=== PATIENT | female | born 1990 | race Caucasian/White ===

== ENCOUNTER 2019-09-13 19:31 | Emergency (ER) | payer BC, SELFPAY ==
[2019-09-13 19:42] VITALS: BP 134/82; PULSE 93; RESP 16; TEMP 36.3; O2SAT 96; BMI 39.1
--- NOTE | 2019-09-13 21:08 | W.ED.GENADLT ---
HPI - General Adult General: Chief complaint: General Medical Stated complaint: spider bite Time Seen by Provider: 09/13/19 21:04 History of Present Illness: HPI narrative: Patient has redness and swelling underneath the chin on the left side on her neck. Was seen in urgent care earlier today and 18-gauge needle was introduced into the possible spider bite. Was placed on Bactrim. Patient states it hurts pretty bad complaint: Abscess Onset (ago): day(s) Location: neck Radiation: non-radiation Severity scale (1-10): 8 Quality: aching Pain Consistency: constant Associated symptoms: Reports rash; Deny chest pain, dyspnea, headache(s), nausea or vomiting Review of Systems Const: Denies: fever, chills or body aches Eyes: Denies: change in vision or blurry vision ENMT: Denies: throat pain or nasal congestion Card: Denies: chest pain or shortness of breath on exertion Resp: Denies: shortness of breath, productive cough or non-productive cough GI: Denies: abdominal pain, nausea or vomiting Musc: Denies: extremity pain Skin/Breast: Reports: rash, skin tenderness, skin swelling and sores Neuro: Denies: headache Psych: Denies: anxiety or depression Miah/Lymph: Denies: easy bruising PFSH ED PFSH: Statuses (acute, chronic, etc) shown below reflect problem list status as previously entered and may not be historically accurate Social History (Updated 09/13/19 @ 10:13 by Ngoc Back LPN) Smoking and tobacco status: current every day smoker Alcohol intake: never Female Reproductive History: Date of last menstrual period: 08/23/19 Physical Exam Const: COMMON NORMALS: no apparent distress, average body habitus and oriented x3 HENMT: COMMON NORMALS: normocephalic HEAD & SCALP: normal to inspection and normocephalic FACE & SINUS: normal facial exam Eye: COMMON NORMALS: conjunctivae normal GENERAL EYE: normal appearance of both eyes CONJUNCTIVA: Yes conjunctivae normal Neck/C-Spine: COMMON NORMALS: no JVD Chest: COMMONS NORMALS: inspection of chest normal Resp: COMMON NORMALS: normal respiratory effort and clear to auscultation bilaterally AUSCULTATION: clear to auscultation bilaterally Cardio: COMMON NORMALS: no JVD, regular rate and regular rhythm RATE: regular rate RHYTHM: regular rhythm GI: COMMON NORMALS: normal to inspection, nondistended, normoactive bowel sounds Extremity: COMMON NORMALS: normal to inspection and full ROM Neuro: COMMON NORMALS: oriented x3 Skin: NARRATIVE SKIN EXAM: Has what appears to be an abscess underneath the left aspect of the chin from a possible bite. Does have a marked amount of erythema and tenderness directly below the chin and tender does appear to be a loculated area Procedures Abscess I/D Site: neck Local Anesthetic: lidocaine 1% Amount of anesthesia used (mL): 3 Technique: incised with #11 blade Packing used?: plain Course Vital Signs: Vital signs: Vital Signs Temperature 97.4 F L 09/13/19 19:42 Pulse Rate 93 09/13/19 19:42 Respiratory Rate 16 09/13/19 19:42 Blood Pressure 134/82 09/13/19 19:42 Pulse Oximetry 96 09/13/19 19:42 Discharge Plan Discharge Prescriptions: No Action lithium carbonate 300 mg capsule 300 mg PO BID RF: 0 venlafaxine [Effexor XR] 75 mg capsule,extended release 24hr 75 mg PO QAM RF: 0 Ajovy 225 mg/1.5 mL syringe 225 mg SUBCUT ONCE Qty: 1.5 RF: 3 Bactrim DS 800-160 mg Tablet 1 tab PO BID RF: 0 Coding Level of Care Code ED Workers' Compensation Claims Examiner for Chg Fwd Exam Problem Focused
[2019-09-13] MEDS: HYDROcodone-acetaminophen 5-325 mg Tablet 1 TAB PO (21:12)
[2019-09-13] MEDS: lidocaine 1% INJ 20 mL INTRADERMA (21:13)
[2019-09-13 22:17] VITALS: BP 138/72; PULSE 89; RESP 16; O2SAT 100
== END 2019-09-13 22:18 | disposition home or self-care (01) ==
PROVIDERS: Emergency Provider Nurse Practitioner Family; Family Provider Nurse Practitioner; PCP Family Medicine
DX: L02.11 Cutaneous abscess of neck (principal); F17.210 Nicotine dependence, cigarettes, uncomplicated
CPT/HCPCS: 10060; 87070; 87077; 87186; 99281; J2001

== ENCOUNTER → 2019-10-01 09:30 | Outpatient (BNVA) | payer BC, SELFPAY | PROVIDERS: Family Provider Nurse Practitioner; PCP Family Medicine; Visit Provider Family Medicine | DX: R68.89 Other general symptoms and signs (principal); Z20.828 Contact with and (suspected) exposure to other viral communicable diseases; F17.219 Nicotine dependence, cigarettes, with unspecified nicotine-induced disorders | CPT/HCPCS: 87804 ==

== ENCOUNTER 2019-10-15 07:33 | Emergency (ER) | payer BC, SELFPAY ==
--- NOTE | 2019-10-15 07:35 | ED_ITS ---
HPI - Abdominal Pain General: Chief Complaint: Abdominal Pain Stated Complaint: ABD PAIN, BLOOD IN STOOL, AND FEVER Time Seen by Provider: 10/15/19 07:35 Source: patient Mode of arrival: ambulatory Limitations: no limitations History of Present Illness: HPI narrative: Patient is a 28-year-old female who presents to ED today with complaints of blood in her stool that she initially noticed yesterday. She states she has had approximately 3-5 stools total that she has noticed blood. She states mainly she notices bright red blood with wiping however did have one stool that had a couple of tablespoons of bright red blood in it that made her concerned. She reports consistency of her stools being loose however this is not uncommon for patient as she often suffers from intermittent diarrhea. She states she has self diagnosed herself with probable IBS. She is having some mild lower abdominal pain. Reports a little nausea without vomiting. Denies history of GI bleeds, hemorrhoids, diverticulitis, colitis. MD elicited complaint: abdominal pain and other (blood in stools) Pertinent past history: none Location: LLQ Severity: mild Quality: cramping Radiation: none Migration to: no migration Exacerbating factors: nothing Relieving factors: bowel movement Associated Symptoms: Reports hematochezia and nausea; Denies bloating, chills, coffee ground emesis, constipation, dysuria, excessive flatus, fever(s), heartburn, hematemesis, fecal incontinence, melena, syncope and vomiting Related Data: Date of Last Menstrual Period: 08/23/19 Review of Systems Const: Denies: fever, chills, body aches, change in appetite, change in weight, fatigue or malaise Card: Denies: chest pain, palpitations, irregular heart rhythm, edema, lightheadedness, syncope or pre-syncope Resp: Denies: shortness of breath, productive cough or chest congestion GI: Reports: abdominal pain, nausea and blood in stool; Denies: vomiting, vomiting blood, coffee grounds in vomit, heartburn/indigestion, constipation, bloating, excessive passing of gas, fecal incontinence, rectal swelling, rectal itching, black tarry stool, mucus in stool, white/light colored stool or fatty stool : Denies: flank pain, difficulty urinating, painful urination, urinary frequency, urinary urgency or urinary hesitancy Musc: Denies: neck pain or back pain Skin/Breast: Denies: rash Neuro: Denies: headache, numbness in extremities, weakness in extremities or changes in sensation PFSH ED PFSH: Social History Smoking and tobacco status: current every day smoker cigarettes Packs smoked per day: 1 Alcohol intake: never Female Reproductive History: Date of last menstrual period: 08/23/19 Physical Exam Const: COMMON NORMALS: no apparent distress, oriented x3, no limitations and alert NUTRITIONAL APPEARANCE: obese Resp: COMMON NORMALS: normal respiratory effort and clear to auscultation bilaterally AUSCULTATION: clear to auscultation bilaterally Cardio: COMMON NORMALS: regular rate and regular rhythm RATE: regular rate RHYTHM: regular rhythm GI: COMMON NORMALS: normal to inspection, nondistended, normoactive bowel sounds, soft to palpation, no hepatosplenomegaly and no masses PALPATION: Yes soft, Yes tender Details: LLQ and Yes no hepatosplenomegaly RECTAL EXAM: other (external skin tag; hemoccult negative; probable small internal hemorrhoid) : COMMON NORMALS: Yes no CVA tenderness BLADDER/KIDNEY EXAM: Yes no CVA tenderness Back/Pelvis: COMMON NORMALS: no CVA tenderness Neuro: COMMON NORMALS: oriented x3 SENSORIUM/ORIENTATION: Yes alert Skin: COMMON NORMALS: no rashes or lesions noted GENERAL SKIN EXAM: no rashes or lesions noted Course Vital Signs: Vital signs: Vital Signs Temperature 99.6 F 10/15/19 07:38 Pulse Rate 86 10/15/19 09:06 Respiratory Rate 15 10/15/19 09:06 Blood Pressure 133/72 10/15/19 09:06 Pulse Oximetry 100 10/15/19 09:06 MDM - Abdominal Pain MDM Narrative: Medical decision making narrative: Patient's H&H is normal. Her vitals are stable. Orthostatics are negative. Patient did have pictures of her bloody stools on her phone and it appears to have a few tablespoons of bright red blood. Her hemoccult is negative here although patient did just have a bowel movement so there was not much stool in her rectum. Patient is stable for follow-up on an outpatient basis. If blood continues she may see about getting a referral for a possible colonoscopy. Most likely patient has an internal hemorrhoid that is bleeding. Lab Data: Labs: Lab Results 10/15/19 10/15/19 10/15/19 Range/Units 07:42 07:42 07:42 WBC 8.9 (4.0-10.0) 10^3/ uL RBC 4.71 (4.1-5.3) 10^6/u L Hgb 12.8 (11.5-15.3) g/dL Hct 40.1 (37.0-47.0) % MCV 85.1 (81-99) fL MCH 27.2 L (28.0-34.0) pg MCHC 31.9 (30.0-36.0) g/dL RDW 14.2 (12.1-15.1) % Plt Count 248 (130-400) 10^3/c mm MPV 9.8 (7.4-10.4) fL Neut % (Auto) 64.0 % Lymph % (Auto) 26.7 % [place] % (Auto) 7.5 % Eos % (Auto) 1.1 % Baso % (Auto) 0.5 % Neut # (Auto) 5.7 (1.8-7.7) 10^3/u L Lymph # (Auto) 2.4 (0.8-4.8) 10^3/u L [place] # (Auto) 0.7 (0.2-0.9) 10^3/u L Eos # (Auto) 0.1 (0.0-0.8) 10^3/u L Baso # (Auto) 0.0 (0.0-0.1) 10^3/u L Nucleated RBC % (a uto) 0 % Nucleated RBCs # 0.0 /100WBC Sodium 140 (136-145) mmol/L Potassium 3.8 (3.5-5.1) mmol/L Chloride 105 (98-107) mmol/L Carbon Dioxide 21 L (22-29) mmol/L Anion Gap 17.8 (5-19) BUN 13 (6-20) mg/dL Creatinine 0.9 (0.5-0.9) mg/dL GFR Calculation 74.6 L (90-130) mL/min Glucose 152 H (65-115) mg/dL Calcium 10.2 (8.5-10.5) mg/dL Total Bilirubin 0.4 (0.15-1.2) mg/dL AST 36 H (0-32) U/L ALT 39 H (0-33) U/L Alkaline Phosphata se 70 (35-105) IU/L Total Protein 7.8 (6.6-8.7) g/dL Albumin 4.3 (3.5-5.2) g/dL Globulin 3.5 (1.3-4.6) g/dL Lipase 18 (13-60) U/L HCG, Qual Negative (Negative) Urine Color (Yellow) Urine Appearance (CLEAR) Urine pH (5-7) Ur Specific Gravit y (1.005-1.030) Urine Protein (Negative) Urine Glucose (UA) (Normal) Urine Ketones (Negative) Urine Blood (Negative) Urine Nitrate (Negative) Urine Bilirubin (NEGATIVE) Urine Urobilinogen (Negative) mg/dL Ur Leukocyte Sandra ase (Negative) Influenza Type A A g (Negative) POC Influenza B Ag (Negative) 10/15/19 10/15/19 Range/Units 08:16 08:57 WBC (4.0-10.0) 10^3/ uL RBC (4.1-5.3) 10^6/u L Hgb (11.5-15.3) g/dL Hct (37.0-47.0) % MCV (81-99) fL MCH (28.0-34.0) pg MCHC (30.0-36.0) g/dL RDW (12.1-15.1) % Plt Count (130-400) 10^3/c mm MPV (7.4-10.4) fL Neut % (Auto) % Lymph % (Auto) % [place] % (Auto) % Eos % (Auto) % Baso % (Auto) % Neut # (Auto) (1.8-7.7) 10^3/u L Lymph # (Auto) (0.8-4.8) 10^3/u L [place] # (Auto) (0.2-0.9) 10^3/u L Eos # (Auto) (0.0-0.8) 10^3/u L Baso # (Auto) (0.0-0.1) 10^3/u L Nucleated RBC % (a uto) % Nucleated RBCs # /100WBC Sodium (136-145) mmol/L Potassium (3.5-5.1) mmol/L Chloride (98-107) mmol/L Carbon Dioxide (22-29) mmol/L Anion Gap (5-19) BUN (6-20) mg/dL Creatinine (0.5-0.9) mg/dL GFR Calculation (90-130) mL/min Glucose (65-115) mg/dL Calcium (8.5-10.5) mg/dL Total Bilirubin (0.15-1.2) mg/dL AST (0-32) U/L ALT (0-33) U/L Alkaline Phosphata se (35-105) IU/L Total Protein (6.6-8.7) g/dL Albumin (3.5-5.2) g/dL Globulin (1.3-4.6) g/dL Lipase (13-60) U/L HCG, Qual (Negative) Urine Color Yellow (Yellow) Urine Appearance Clear (CLEAR) Urine pH 7.0 (5-7) Ur Specific Gravit y 1.005 (1.005-1.030) Urine Protein Neg (Negative) Urine Glucose (UA) Norm (Normal) Urine Ketones Negative (Negative) Urine Blood Neg (Negative) Urine Nitrate Negative (Negative) Urine Bilirubin Neg (NEGATIVE) Urine Urobilinogen Norm (Negative) mg/dL Ur Leukocyte Sandra ase Negative (Negative) Influenza Type A A g Negative (Negative) POC Influenza B Ag Negative (Negative) Imaging Data ^: CT Abd/Pel: Radiologist's impression: [place] [address] CT Scan Report Signed Patient: Cuca Mcintosh Unit #: [id number] : 1990 Age/Sex: 28 / F ADM Date: 10/15/19 Loc: ER Room/Bed: Attending Dr: Ordering Provider/Ordering MD: Maria Del Rosario Solis Date of Service: 10/15/19 Procedure(s): CT abdomen pelvis w con* [id number] Accession Number(s): [id number] Report Number: [id number] WS: [id number] CT scan of the abdomen and pelvis with IV contrast. Additional two-dimensional coronal and sagittal reconstruction was performed. 10/15/2019 Clinical Data: LLQ pain; bloody stools Comparison: CT abdomen and pelvis, 01/27/2018. DLP: 1544.[address] scans at [facility] use at least one of these dose optimization techniques: automated exposure control; mA and/or kV adjustment per patient size (includes targeted exams where dose is matched to clinical indication); or iterative reconstruction. Findings: The lower lungs show no nodules, masses or effusions. The liver, gallbladder, spleen, adrenal glands and pancreas are normal. The kidneys show equal bilateral contrast excretion with no cyst or masses. The abdominal aorta is normal in size. No appendicitis or diverticulitis is seen. The stomach, small bowel and colon are unremarkable. No abscess, adenopathy, ascites, mass, obstruction or free air is seen. The bladder is unremarkable. The uterus is normal. No inguinal hernia is seen. The bones of the lower thorax, lumbar spine, pelvis, and hips show only degenerative disc disease at L5-S1.. CT/CT abdomen pelvis w con* [id number] Impression: Negative CT scan of the abdomen and pelvis. Dictated By: Martha Thorne MD Signed By: Martha Thorne MD Signed Date/Time: 10/15/19848 DD/ 2 Discharge Plan Discharge Patient Disposition: Home, Self-Care Clinical Impression: Hematochezia Condition: Stable Prescriptions: No Action oseltamivir [Tamiflu] 75 mg capsule 75 mg PO DAILY Qty: 10 RF: 0 lithium carbonate 300 mg capsule 300 mg PO BID RF: 0 venlafaxine [Effexor XR] 75 mg capsule,extended release 24hr 75 mg PO QAM RF: 0 Ajovy 225 mg/1.5 mL syringe 225 mg SUBCUT ONCE Qty: 1.5 RF: 3 Ajovy 225 mg/1.5 mL syringe 225 mg SUBCUT .Monthly Qty: 1.5 RF: 3 Emgality Syringe 120 mg/mL syringe 240 mg SUBCUT ONCE Qty: 2 RF: 0 Discharge Orders: Discharge Order (Routine); Ordered 10/15/19 Ordered By: Maria Del Rosario Solis Referrals: Madelyn Chino FNP [Family Provider] - Jacqui Peraza DO [Primary Care Provider] - Activity Restrictions/Additional Instructions: As discussed please followup with Dr. Peraza if bleeding continues past 3-5 days. Return to ED if bleeding becomes severe, you have lightheadedness, dizziness, passing out episodes, worsening pain, or any other concerns you may have. Stand Alone Forms: Work/School Release Discharge Date/Time: 10/15/19 09:52 Coding Level of Care Code ED Manager Oracle Database for Holland Rawls
[2019-10-15 07:36] VITALS: BMI 39.1
[2019-10-15 07:38] VITALS: BP 166/90; PULSE 120; RESP 16; TEMP 37.6; O2SAT 98
[2019-10-15 07:46] LABS: Basophils % 0.5 %; Eosinophils # 0.1 10^3/uL (0.0-0.8); Eosinophils % 1.1 %; Hematocrit 40.1 % (37.0-47.0); Hemoglobin 12.8 g/dL (11.5-15.3); Lymphocytes # 2.4 10^3/uL (0.8-4.8); Lymphocytes % 26.7 %; Mean Corpuscular HGB Conc 31.9 g/dL (30.0-36.0); Mean Corpuscular Hemoglobin 27.2 pg (28.0-34.0); Mean Corpuscular Volume 85.1 fL (81-99); Mean Platelet Volume 9.8 fL (7.4-10.4); Monocytes # 0.7 10^3/uL (0.2-0.9); Monocytes % 7.5 %; Neutrophils # 5.7 10^3/uL (1.8-7.7); Nucleated Red Blood Cells % 0 %; Platelet Count 248 10^3/cmm (130-400); Red Blood Count 4.71 10^6/uL (4.1-5.3); Red Cell Distribution Width 14.2 % (12.1-15.1); White Blood Count 8.9 10^3/uL (4.0-10.0)
--- NOTE | 2019-10-15 07:47 | CT_ITS ---
WS: [id number] CT scan of the abdomen and pelvis with IV contrast. Additional two-dimensional coronal and sagittal r econstruction was performed. 10/15/2019 Clinical Data: LLQ pain; bloody stools Comparison: CT abdomen and pelvis, 01/27/2018. DLP: 1544.[address] scans at [facility] use at least one of these dose optimization techniques: automat ed exposure control; mA and/or kV adjustment per patient size (includes targeted exams where dose is matched to clinical indication); or iterative reconstruction. Findings: The lower lungs show no nodules, masses or effusions. The liver, gallbladder, spleen, adrenal glands and pancreas are normal. The kidneys show equal bilateral contrast excretion with no cyst or masses. The abdominal aorta is normal in size. No appendicitis or diverticulitis is seen. The stomach, small bowel and colon are unremarkable. No ab scess, adenopathy, ascites, mass, obstruction or free air is seen. The bladder is unremarkable. The uterus is normal. No inguinal hernia is seen. The bones of the lower thorax, lumbar spine, pelvis, and hips show only degenerative disc disease at L5-S1.. CT/CT abdomen pelvis w con* [id number] Impression: Negative CT scan of the abdomen and pelvis.
[2019-10-15 08:01] LABS: Alanine Aminotransferase 39 U/L (0-33); Albumin Level 4.3 g/dL (3.5-5.2); Alkaline Phosphatase 70 IU/L (35-105); Anion Gap 17.8 (5-19); Aspartate Amino Transferase 36 U/L (0-32); Blood Urea Nitrogen 13 mg/dL (6-20); Calcium 10.2 mg/dL (8.5-10.5); Carbon Dioxide 21 mmol/L (22-29); Chloride 105 mmol/L (98-107); Globulin 3.5 g/dL (1.3-4.6); Glomerular Filtration Rate 74.6 mL/min (90-130); Glucose 152 mg/dL (65-115); Lipase 18 U/L (13-60); Potassium 3.8 mmol/L (3.5-5.1); Sodium 140 mmol/L (136-145); Total Bilirubin 0.4 mg/dL (0.15-1.2); Total Protein 7.8 g/dL (6.6-8.7)
[2019-10-15 08:03] LABS: HCG, Serum Qual Negative (Negative)
[2019-10-15] MEDS: sodium chloride 0.9% 1,000 ML 999 ML IV (08:17)
[2019-10-15] MEDS: iohexol 300 mg/mL 100 mL Btl IV (08:32)
[2019-10-15 08:46] VITALS: BP 116/76; BP 123/69; BP 134/84; PULSE 105; PULSE 109
[2019-10-15 08:58] LABS: Influenza A by IFA Negative (Negative); Influenza B by IFA Negative (Negative)
[2019-10-15] MEDS: ondansetron 2 mg/ML SDV 2 mL 4 MG IVP (09:01)
[2019-10-15 09:03] LABS: Add Urine Microscopic? NO
[2019-10-15 09:06] VITALS: BP 133/72; PULSE 86; RESP 15; O2SAT 100
[2019-10-15 09:08] LABS: Bilirubin Urine Neg (NEGATIVE); Blood Urine Neg (Negative); Glucose Urine UA Norm (Normal); Ketones Urine Negative (Negative); Leukocyte Esterase Urine Negative (Negative); Nitrate Urine Negative (Negative); Protein Urine Neg (Negative); Specific Gravity, Urine 1.005 (1.005-1.030); Urine Appearance Clear (CLEAR); Urine Color Yellow (Yellow); Urobilinogen Urine Norm (Negative)
[2019-10-15 09:51] VITALS: BP 133/72; PULSE 82; RESP 17; O2SAT 99
== END 2019-10-15 09:52 | disposition home or self-care (01) ==
PROVIDERS: Emergency Provider Physician Assistant; Family Provider Nurse Practitioner; PCP Family Medicine
DX: K92.1 Melena (principal); E66.9 Obesity, unspecified; Z68.39 Body mass index [BMI] 39.0-39.9, adult; F17.210 Nicotine dependence, cigarettes, uncomplicated
CPT/HCPCS: 36415; 74177; 80053; 81003; 83690; 84703; 85025; 87804; 96360; 96374; 99284; A9270; J2405; J7030; Q9967

== ENCOUNTER 2019-10-27 13:27 | Emergency (ER) | payer BC, SELFPAY ==
[2019-10-27 13:42] VITALS: BP 122/77; PULSE 100; RESP 16; TEMP 37.1; O2SAT 98; BMI 39.9
--- NOTE | 2019-10-27 14:31 | W.ED.SKABFB ---
HPI - Skin/Abscess/Foreign Bdy General: Chief complaint: Skin/Abscess/Foreign Body Stated complaint: face abscess Time Seen by Provider: 10/27/19 14:15 History of Present Illness: HPI narrative: Pimple to the right cheek that is turned into a very painful area now. Been present to 3 days a stuck a pin last night and try to drain it now is swelled up more MD complaint: abscess/boil Onset (ago): day(s) Tetanus up to date: yes Location: face Severity: moderate Severity scale (1-10): 5 Quality: aching Associated symptoms: Deny chills, fever(s), nausea or vomiting Review of Systems Narrative: History of MRSA Const: Denies: fever, chills or body aches Eyes: Denies: change in vision or blurry vision ENMT: Denies: throat pain or nasal congestion Card: Denies: chest pain or shortness of breath on exertion Resp: Denies: shortness of breath, productive cough or non-productive cough GI: Denies: abdominal pain, nausea or vomiting Musc: Denies: extremity pain Skin/Breast: Reports: skin tenderness and skin swelling (Right cheek); Denies: rash Neuro: Denies: headache Psych: Denies: anxiety or depression Miah/Lymph: Denies: easy bruising PFS ED PFSH: Medical History (Updated 10/27/19 @ 14:30 by JOSE Irby) Bipolar 2 disorder Chronic migraine without aura, not intractable, without status migrainosus Social History Smoking and tobacco status: current every day smoker cigarettes Packs smoked per day: 1 Alcohol intake: never Female Reproductive History: Date of last menstrual period: 10/27/19 Physical Exam Const: COMMON NORMALS: no apparent distress, average body habitus and oriented x3 HENMT: COMMON NORMALS: normocephalic HEAD & SCALP: normal to inspection and normocephalic FACE & SINUS: normal facial exam Eye: COMMON NORMALS: conjunctivae normal GENERAL EYE: normal appearance of both eyes CONJUNCTIVA: Yes conjunctivae normal Neck/C-Spine: COMMON NORMALS: no JVD Chest: COMMONS NORMALS: inspection of chest normal Resp: COMMON NORMALS: normal respiratory effort and clear to auscultation bilaterally AUSCULTATION: clear to auscultation bilaterally Cardio: COMMON NORMALS: no JVD, regular rate and regular rhythm RATE: regular rate RHYTHM: regular rhythm GI: COMMON NORMALS: normal to inspection, nondistended, normoactive bowel sounds Extremity: COMMON NORMALS: normal to inspection and full ROM Neuro: COMMON NORMALS: oriented x3 Skin: NARRATIVE SKIN EXAM: Right cheek he has moderate erythema with an abscess is come to ahead I lanced that and drained out a moderate amount of pus it was very tender lymph gland swollen slightly underneath anterior cervical Procedures Abscess I/D Site: face Side (if applicable): right Technique: incised with #11 blade Irrigation: No Packing used?: none Course Vital Signs: Vital signs: Vital Signs Temperature 98.8 F 10/27/19 13:42 Pulse Rate 100 10/27/19 13:42 Respiratory Rate 16 10/27/19 13:42 Blood Pressure 122/77 10/27/19 13:42 Pulse Oximetry 98 10/27/19 13:42 Discharge Plan Discharge Patient Disposition: Home, Self-Care Clinical Impression: Abscess of external cheek, right Condition: Stable Prescriptions: New Bactrim DS 800-160 mg tablet 1 tab PO BID 10 Days Qty: 20 RF: 0 hydrocodone-acetaminophen 5-325 mg tablet 1 tab PO Q6H PRN (Reason: pain) Qty: 10 RF: 0 No Action lithium carbonate 300 mg capsule 300 mg PO BID Qty: 60 RF: 0 venlafaxine [Effexor XR] 75 mg capsule,extended release 24hr 75 mg PO QAM Qty: 90 RF: 0 Emgality Syringe 120 mg/mL syringe 240 mg SUBCUT ONCE Qty: 2 RF: 0 Discharge Orders: Discharge Order (Routine); Ordered 10/27/19 Ordered By: Armando Serna Referrals: Madelyn Chino FNP [Family Provider] - Jacqui Peraza DO [Primary Care Provider] - Discharge Diet: Usual diet Discharge Activity: Increase activity as tolerated Patient Instructions: Abscess (ED) Activity Restrictions/Additional Instructions: Follow-up with medical provider as directed. Take medications as prescribed. Return to the ER or your medical provider if condition worsens. Please read and understand discharge instructions. If any questions ask please. Call for lab results from swabs in 3 to 4 days keep wound clean and dry Discharge Date/Time: 10/27/19 14:37 Coding Level of Care Code ED Instrument Maker Apprentice for Chg Fwd Exam Comprehensive
--- NOTE | 2019-10-29 14:52 | PC.NURSE ---
CULTURE REPORT CALLED FROM LAB PT PLACED ON BACTRIM DS WHICH REPORTED MRSA IS SENSATIVE TO BACTRIM
== END 2019-10-27 14:37 | disposition home or self-care (01) ==
PROVIDERS: Emergency Provider Nurse Practitioner Family; Family Provider Nurse Practitioner; PCP Family Medicine
DX: L02.01 Cutaneous abscess of face (principal); F17.210 Nicotine dependence, cigarettes, uncomplicated; Z86.14 Personal history of Methicillin resistant Staphylococcus aureus infection
CPT/HCPCS: 10060; 12345; 87070; 87077; 87186; 87641; 99281; 99282

== ENCOUNTER 2019-10-31 12:33 | Emergency (ER) | payer BC, SELFPAY ==
--- NOTE | 2019-10-31 12:42 | W.ED.HA ---
HPI - Headache General: Chief Complaint: Headache Stated Complaint: collado x 3 days Time Seen by Provider: 10/31/19 12:34 Source: patient Mode of arrival: ambulatory Limitations: no limitations History of Present Illness: HPI Narrative: Patient is a 28-year-old female who presents to ED today with complaints of a migraine headache over the past 3 days. Patient states she has a chronic history of migraines and has tried several different medications for treatment. Patient follows up with neurology Dr. Martinez. She complains of nausea along with her headache which is common. Patient states the headache she experiences today feels like a typical migraine only worse in severity. She has not had any head injury or trauma. MD elicited complaint: headache and migraine Pertinent past history: migraines Onset (ago): day(s) Onset description: gradually Severity: severe Relieving factors: nothing Context: occurred at rest Associated symptoms: Reports no associated symptoms and nausea; Deny chest pain, fever(s), lightheadedness, malaise, rash, syncope or vomiting Review of Systems Const: Denies: fever, chills, body aches, change in appetite, change in weight, fatigue or malaise Eyes: Denies: change in vision, blurry vision or photophobia ENMT: Denies: throat pain, enlarged tonsils or painful swallowing Card: Denies: chest pain, palpitations, irregular heart rhythm, lightheadedness, syncope or shortness of breath on exertion Resp: Denies: shortness of breath, productive cough or pain on inspiration GI: Reports: nausea; Denies: abdominal pain, vomiting, heartburn/indigestion or diarrhea : Denies: flank pain, difficulty urinating, painful urination, urinary frequency, urinary urgency or urinary hesitancy Musc: Denies: neck pain, back pain or joint pain Skin/Breast: Denies: rash Neuro: Reports: headache; Denies: numbness in extremities, weakness in extremities, changes in sensation, lack of coordination, difficulty walking or dizziness PFS ED PFSH: Social History Smoking and tobacco status: current every day smoker cigarettes Packs smoked per day: 1 Alcohol intake: never Female Reproductive History: Date of last menstrual period: 10/27/19 Physical Exam Const: COMMON NORMALS: no apparent distress, oriented x3, no limitations and alert NUTRITIONAL APPEARANCE: obese HENMT: COMMON NORMALS: normocephalic, head/scalp atraumatic, hearing grossly normal bilaterally, external ears normal, EAC's normal, TM's normal bilaterally, external nose normal and nasal mucous membranes and turbinates normal HEAD & SCALP: normal to inspection, normocephalic and atraumatic FACE & SINUS: normal facial exam NOSE: external nose normal and nasal mucous membranes and turbinates normal EXTERNAL EAR: Yes external ears normal EXTERNAL AUDITORY CANAL: EAC's normal TYMPANIC MEMBRANE: TM's normal bilaterally Eye: COMMON NORMALS: PERRL and EOMs intact bilaterally PUPIL: Yes PERRL Neck/C-Spine: COMMON NORMALS: full ROM, no lymphadenopathy and no meningeal signs Neuro: RAMONITA COMA SCALE: document GCS findings Ramonita coma scale eye opening: Spontaneous [place] coma scale verbal response: Orientated [place] coma scale motor response: Obey commands Ramonita coma scale total score: 15 COMMON NORMALS: oriented x3, CN's II-XII intact bilaterally, moves all extremities, no focal motor deficits, no sensory deficits noted and gait normal SENSORIUM/ORIENTATION: Yes alert MENINGEAL SIGNS: Yes no meningeal signs Skin: COMMON NORMALS: no rashes or lesions noted GENERAL SKIN EXAM: no rashes or lesions noted Course Vital Signs: Vital signs: Vital Signs Temperature 98.6 F 10/31/19 12:45 Pulse Rate 72 10/31/19 16:50 Respiratory Rate 18 10/31/19 16:50 Blood Pressure 110/69 10/31/19 16:50 Pulse Oximetry 95 10/31/19 16:50 Discharge Plan Discharge Patient Disposition: Home, Self-Care Clinical Impression: Headache, migraine Qualifiers: Migraine type: without aura Status migrainosus presence: with status migrainosus Intractability: not intractable Qualified Code(s): G43.001 - Migraine without aura, not intractable, with status migrainosus Condition: Stable Prescriptions: No Action lithium carbonate 300 mg capsule 300 mg PO BID Qty: 60 RF: 0 venlafaxine [Effexor XR] 75 mg capsule,extended release 24hr 75 mg PO QAM Qty: 90 RF: 0 Emgality Syringe 120 mg/mL syringe 240 mg SUBCUT ONCE Qty: 2 RF: 0 Bactrim DS 800-160 mg tablet 1 tab PO BID 10 Days Qty: 20 RF: 0 Discharge Orders: Discharge Order (Routine); Ordered 10/31/19 Ordered By: Maria Del Rosario Solis Referrals: Madelyn Chino FNP [Family Provider] - Jacqui Peraza DO [Primary Care Provider] - Discharge Diet: Usual diet Discharge Activity: Increase activity as tolerated Patient Instructions: Headache - Migraine (Adult) Discharge Date/Time: 10/31/19 16:53 Coding Level of Care Code ED Enrichment Teacher for Chg Fwd Exam Detailed
[2019-10-31 12:45] VITALS: BP 117/69; PULSE 95; RESP 16; TEMP 37; O2SAT 100; BMI 39.1
[2019-10-31] MEDS: sodium chloride 0.9% 1,000 ML 999 ML IV (13:01)
[2019-10-31] MEDS: ketorolac 60 mg/2 mL INJ 30 MG IVP (13:04)
[2019-10-31] MEDS: diphenhydrAMINE 50 mg/mL SDV 1mL IVP (13:06)
[2019-10-31] MEDS: dexamethasone 10 mg/mL INJ 6 MG IV (13:07)
[2019-10-31] MEDS: ondansetron 2 mg/ML SDV 2 mL 4 MG IVP (13:09)
[2019-10-31] MEDS: valproic acid inj 500 MG in sodium chloride 0.9% 50 ML 55 MG IV (15:19)
[2019-10-31] MEDS: metoclopramide 5 mg/mL SDV 2 mL 10 MG IVP (15:58)
[2019-10-31 16:05] VITALS: RESP 18
[2019-10-31] MEDS: morphine 4 mg/mL SDV 1 mL IVP (16:05)
[2019-10-31 16:39] VITALS: BP 110/69; PULSE 71; O2SAT 98
[2019-10-31 16:50] VITALS: BP 110/69; PULSE 72; RESP 18; O2SAT 95
== END 2019-10-31 16:53 | disposition home or self-care (01) ==
PROVIDERS: Emergency Provider Physician Assistant; Family Provider Nurse Practitioner; PCP Family Medicine
DX: G43.909 Migraine, unspecified, not intractable, without status migrainosus (principal); E66.9 Obesity, unspecified; Z68.39 Body mass index [BMI] 39.0-39.9, adult; F17.210 Nicotine dependence, cigarettes, uncomplicated; R40.2412 Glasgow coma scale score 13-15, at arrival to emergency department
CPT/HCPCS: 12345; 96360; 96361; 96365; 96366; 96375; 99283; J1100; J1200; J1885; J2270; J2405; J2765; J7030

== ENCOUNTER → 2019-11-20 10:51 | Outpatient (BNVA) | payer BC, SELFPAY | PROVIDERS: Family Provider Nurse Practitioner; PCP Family Medicine; Visit Provider Family Medicine | DX: F31.81 Bipolar II disorder (principal); F17.219 Nicotine dependence, cigarettes, with unspecified nicotine-induced disorders | CPT/HCPCS: 80178 ==

== ENCOUNTER 2019-11-29 05:33 | Emergency (ER) | payer BC, SELFPAY ==
[2019-11-29 05:40] VITALS: BP 112/75; PULSE 89; RESP 16; TEMP 36.8; O2SAT 97; BMI 39.9
--- NOTE | 2019-11-29 05:50 | XRR_ITS ---
PROCEDURE INFORMATION: Exam: XR Left Forearm Exam date and time: 11/29/2019 6:23 AM Age: 28 years old Clinical indication: Injury or trauma; Injury history: Cut; Initial encounter; Laceration; Arm, lower; Left; Additional info: Foreign body -glass TECHNIQUE: Imaging protocol: XR Left forearm. Views: 2 views. COMPARISON: CR Forearm LEFT [id number] 05/17/2016 9:12 PM FINDINGS: Bones/joints: No fracture. No dislocation. Soft tissues: There appears to be a laceration involving the distal dorsal forearm. No soft tissue radiopaque foreign body. XR/XR forearm LT 2V [id number] IMPRESSION: Soft tissue injury. No osseous injury or radiopaque foreign body.
[2019-11-29 06:47] VITALS: BP 122/78; PULSE 66; RESP 16; O2SAT 97
--- NOTE | 2019-11-29 07:10 | W.ED.HA ---
HPI - Headache General: Chief Complaint: Headache Stated Complaint: MIGRAINE/ARM LAC Time Seen by Provider: 11/29/19 07:10 Review of Systems General: Reports: 10 or more systems reviewed and unremarkable except in HPI and below Neuro: Reports: headache PFSH ED PFSH: Medical History Bipolar 2 disorder Chronic migraine without aura, not intractable, without status migrainosus Surgical History H/O hand surgery Family History Other Hypertension Social History Smoking and tobacco status: current every day smoker cigarettes Packs smoked per day: 1 Alcohol intake: never Female Reproductive History: Date of last menstrual period: 11/25/19 Physical Exam Const: COMMON NORMALS: oriented x3 and alert Neck/C-Spine: COMMON NORMALS: full ROM, no lymphadenopathy, supple, no meningeal signs and no JVD Cardio: COMMON NORMALS: no JVD Extremity: LEFT UPPER EXTREMITY: Yes lower arm (laceration) Neuro: COMMON NORMALS: oriented x3 SENSORIUM/ORIENTATION: Yes alert MENINGEAL SIGNS: Yes no meningeal signs Procedures Laceration Laceration 1: Site: upper extremity Description: linear Depth: simple, single layer Local Anesthetic: lidocaine 1% Amount of anesthesia used (mL): 4 Pre-repair: wound explored and irrigated extensively Skin layer closed with: nylon Size (cm): 4-0 Number of sutures: 4 Technique: running Laceration 2: Site: upper extremity Side (If applicable): left Size (cm): 2 Description: linear Depth: simple, single layer Local Anesthetic: lidocaine 1% and with epi Amount of anesthesia used (mL): 4 Pre-repair: wound explored Skin layer closed with: nylon Size (cm): 4-0 Number of sutures: 4 Technique: running Course Vital Signs: Vital signs: Vital Signs Temperature 98.3 F 11/29/19 05:40 Pulse Rate 66 11/29/19 06:47 Respiratory Rate 18 11/29/19 07:37 Blood Pressure 122/78 11/29/19 06:47 Pulse Oximetry 98 11/29/19 07:37 Discharge Plan Discharge Patient Disposition: Home, Self-Care Clinical Impression: Laceration Migraine Qualifiers: Migraine type: unspecified Status migrainosus presence: without status migrainosus Intractability: not intractable Qualified Code(s): G43.909 - Migraine, unspecified, not intractable, without status migrainosus Condition: Stable Prescriptions: New Bactrim DS 800-160 mg tablet 1 tab PO DAILY 10 Days Qty: 20 RF: 0 hydrocodone-acetaminophen 5-325 mg tablet 1 tab PO Q4H PRN (Reason: pain) Qty: 10 RF: 0 No Action venlafaxine [Effexor XR] 75 mg capsule,extended release 24hr 75 mg PO QAM Qty: 90 RF: 0 lithium carbonate 300 mg capsule 300 mg PO BID Qty: 60 RF: 0 Emgality Syringe 120 mg/mL syringe 240 mg SUBCUT ONCE Qty: 2 RF: 0 Discharge Orders: Discharge Order (Routine); Ordered 11/29/19 Ordered By: Ken Villagran Referrals: Madelyn Chino FNP [Family Provider] - Jacqui Peraza DO [Primary Care Provider] - Patient Instructions: Laceration (ED) Coding Level of Care Code ED Television Servicer for Chg Fwd Exam Expanded Problem Focused
[2019-11-29 07:37] VITALS: RESP 18; O2SAT 98
[2019-11-29] MEDS: morphine 4 mg/mL SDV 1 mL 2 MG IM (07:37)
[2019-11-29] MEDS: ondansetron 2 mg/ML SDV 2 mL 4 MG IVP (07:37)
[2019-11-29] MEDS: diphenhydrAMINE 50 mg/mL SDV 1mL IM (07:38)
[2019-11-29] MEDS: dexamethasone 10 mg/mL INJ IM (07:39)
--- NOTE | 2019-11-29 08:10 | PC.NURSE ---
4x4 and kerlix applied to wounds on left arm prior to D/C.
[2019-11-29 08:26] VITALS: BP 110/79; PULSE 75; RESP 18; O2SAT 100
== END 2019-11-29 08:15 | disposition home or self-care (01) ==
PROVIDERS: Emergency Provider Family Medicine; Family Provider Nurse Practitioner; PCP Family Medicine
DX: G43.909 Migraine, unspecified, not intractable, without status migrainosus (principal); S51.812A Laceration without foreign body of left forearm, initial encounter; X58.XXXA Exposure to other specified factors, initial encounter; F31.81 Bipolar II disorder; F17.210 Nicotine dependence, cigarettes, uncomplicated
CPT/HCPCS: 12001; 12345; 73090; 96372; 96374; 96375; 99282; 99283; J1100; J1200; J2270; J2405

== ENCOUNTER 2019-12-03 21:52 | Emergency (ER) | payer BC, SELFPAY ==
[2019-12-03 22:09] VITALS: BP 140/84; PULSE 113; RESP 18; TEMP 36.1; O2SAT 99; BMI 38.2
--- NOTE | 2019-12-03 22:36 | W.ED.WOUNDLC ---
HPI - Wound/Laceration General: Chief Complaint: Extremity Injury, Upper Stated Complaint: L ARM WOUND Time Seen by Provider: 12/03/19 22:25 Source: patient Mode of arrival: ambulatory Limitations: no limitations History of Present Illness: HPI narrative: Patient is a 28-year-old female who presents to ED today with complaints of infection to her left forearm. Patient was seen here 2 days ago after sustaining the laceration on a piece of glass. Forearm was x-rayed without any foreign bodies noted. Wounds were cleansed and sutured. Patient was placed on antibiotics (Bactrim). She states shortly after she began noticing some redness to the area and was thus seen by her PCP today-she added Clindamycin to her antibiotic regimen. She presents to ED this evening stating she continues to feel like the area is worsening. She has not been running fevers. Onset (ago): day(s) Extremity Location: Left: forearm Patient tetanus UTD: Yes Context: accidental Associated symptoms: Reports no associated symptoms; Denies chills or fever(s) Review of Systems Const: Denies: fever, chills, body aches, fatigue or malaise Musc: Reports: other (pain/swelling/redness to L forearm) Skin/Breast: Reports: other (2 repaired lacerations to L forearm) Neuro: Denies: numbness in extremities, weakness in extremities or changes in sensation [facility] ED PFSH: Social History Smoking and tobacco status: current every day smoker cigarettes Packs smoked per day: 1 Alcohol intake: never Female Reproductive History: Date of last menstrual period: 11/25/19 Physical Exam Const: COMMON NORMALS: no apparent distress, oriented x3, no limitations and alert NUTRITIONAL APPEARANCE: obese Resp: COMMON NORMALS: normal respiratory effort and clear to auscultation bilaterally AUSCULTATION: clear to auscultation bilaterally Cardio: COMMON NORMALS: regular rhythm RATE: tachycardic RHYTHM: regular rhythm Extremity: OTHER: pt has two 1-2cm repaired/sutured lacerations to her L forearm; one dorsal laceration that looks clean and infection free; other laceration on the medial/ulnar surface that has surrounding redness/induration; with gentle expression there is purulent material that drains from incision; pt has outlined erythema-redness has not spread outside these lines; she maintains full ROM of wrist/digits; sensory intact; she has ecchymosis to AC region from recent blood draw Neuro: COMMON NORMALS: oriented x3 SENSORIUM/ORIENTATION: Yes alert Skin: OTHER: see extremity assessment Course Vital Signs: Vital signs: Vital Signs Temperature 96.9 F L 12/03/19 22:09 Pulse Rate 88 12/03/19 23:43 Respiratory Rate 16 12/03/19 23:43 Blood Pressure 132/84 12/03/19 23:43 Pulse Oximetry 98 12/03/19 23:43 MDM - Wound/Laceration MDM Narrative: Medical decision making narrative: pts labs look okay; she was tachy upon arrival but this resolved; she is afebrile; culture obtained from wound; sutures from infected site were removed to help facilitate drainage-this will have to heal by secondary intent at this time; pt was given IV vanc here; she will be instructed to continue the bactrim and clinda; strict return to ED precautions given; she has no concern at this time for further drainable abscess, sepsis, compartment syndrome, retained fb, or any other emergent process Lab Data: Labs: Lab Results 12/03/19 12/03/19 Range/Units 23:01 23:01 WBC 11.7 H (4.0-10.0) 10^3/ uL RBC 5.27 (4.1-5.3) 10^6/u L Hgb 14.6 (11.5-15.3) g/dL Hct 46.3 (37.0-47.0) % MCV 87.9 (81-99) fL MCH 27.7 L (28.0-34.0) pg MCHC 31.5 (30.0-36.0) g/dL RDW 13.4 (12.1-15.1) % Plt Count 319 (130-400) 10^3/c mm MPV 9.7 (7.4-10.4) fL Neut % (Auto) 58.4 % Lymph % (Auto) 31.1 % [place] % (Auto) 7.2 % Eos % (Auto) 2.3 % Baso % (Auto) 0.7 % Neut # (Auto) 6.9 (1.8-7.7) 10^3/u L Lymph # (Auto) 3.7 (0.8-4.8) 10^3/u L [place] # (Auto) 0.9 (0.2-0.9) 10^3/u L Eos # (Auto) 0.3 (0.0-0.8) 10^3/u L Baso # (Auto) 0.1 (0.0-0.1) 10^3/u L Nucleated RBC % (a uto) 0 % Nucleated RBCs # 0.0 /100WBC Sodium 137 (136-145) mmol/L Potassium 3.9 (3.5-5.1) mmol/L Chloride 101 (98-107) mmol/L Carbon Dioxide 24 (22-29) mmol/L Anion Gap 15.9 (5-19) BUN 12 (6-20) mg/dL Creatinine 0.8 (0.5-0.9) mg/dL GFR Calculation 85.4 L (90-130) mL/min Glucose 100 (65-115) mg/dL Calculated Osmolal ity 280 L (285-295) mOsm/k g Calcium 10.3 (8.5-10.5) mg/dL Total Bilirubin 0.2 (0.15-1.2) mg/dL AST 14 (0-32) U/L ALT 15 (0-33) U/L Alkaline Phosphata se 75 (35-105) IU/L Total Protein 7.4 (6.6-8.7) g/dL Albumin 4.4 (3.5-5.2) g/dL Globulin 3.0 (1.3-4.6) g/dL Discharge Plan Discharge Patient Disposition: Home, Self-Care Clinical Impression: Cellulitis of left forearm, Infection involving suture with abscess Condition: Stable Prescriptions: No Action clindamycin HCl 300 mg capsule 300 mg PO Q6H Qty: 40 RF: 0 ondansetron HCl [Zofran] 4 mg tablet 4 mg PO Q8H PRN (Reason: nausea and vomiting) Qty: 15 RF: 0 venlafaxine [Effexor XR] 75 mg capsule,extended release 24hr 75 mg PO QAM Qty: 90 RF: 0 Emgality Syringe 120 mg/mL syringe 240 mg SUBCUT ONCE Qty: 2 RF: 0 lithium carbonate 300 mg capsule 300 mg PO TID RF: 0 sulfamethoxazole-trimethoprim [Bactrim DS] 800-160 mg tablet 1 tab PO DAILY 10 Days Qty: 20 RF: 0 hydrocodone-acetaminophen 5-325 mg tablet 1 tab PO Q4H PRN (Reason: pain) Qty: 10 RF: 0 Discharge Orders: Discharge Order (Routine); Ordered 12/03/19 Ordered By: Maria Del Rosario Solis Referrals: Madelyn Chino FNP [Family Provider] - Jacqiu Peraza DO [Primary Care Provider] - Activity Restrictions/Additional Instructions: As discussed continue taking your Bactrim and Clindamycin as directed. You may apply warm compresses to the forearm to help facilitate drainage. Wound where sutures were removed will heal on its own. Continue monitoring the marked area of redness for spreading outside the lines. Return to the emergency department for worsening pain, worsening swelling, spreading redness, fevers greater than 100.4, or any other concerns you may have. Sutures from other incision can be removed in a week. Discharge Date/Time: 12/04/19 00:25 Coding Level of Care Code ED Artist Relationship Manager for Chg Fwd Exam Expanded Problem Focused
[2019-12-03 22:44] VITALS: PULSE 99
[2019-12-03 22:54] VITALS: RESP 18; O2SAT 99
[2019-12-03] MEDS: morphine 4 mg/mL SDV 1 mL IVP (22:54)
[2019-12-03] MEDS: ondansetron 2 mg/ML SDV 2 mL 4 MG IVP (22:54)
[2019-12-03 23:06] LABS: Basophils # 0.1 10^3/uL (0.0-0.1); Basophils % 0.7 %; Eosinophils # 0.3 10^3/uL (0.0-0.8); Eosinophils % 2.3 %; Hematocrit 46.3 % (37.0-47.0); Hemoglobin 14.6 g/dL (11.5-15.3); Lymphocytes # 3.7 10^3/uL (0.8-4.8); Lymphocytes % 31.1 %; Mean Corpuscular HGB Conc 31.5 g/dL (30.0-36.0); Mean Corpuscular Hemoglobin 27.7 pg (28.0-34.0); Mean Corpuscular Volume 87.9 fL (81-99); Mean Platelet Volume 9.7 fL (7.4-10.4); Monocytes # 0.9 10^3/uL (0.2-0.9); Monocytes % 7.2 %; Neutrophils # 6.9 10^3/uL (1.8-7.7); Neutrophils % 58.4 %; Nucleated Red Blood Cells % 0 %; Platelet Count 319 10^3/cmm (130-400); Red Blood Count 5.27 10^6/uL (4.1-5.3); Red Cell Distribution Width 13.4 % (12.1-15.1); White Blood Count 11.7 10^3/uL (4.0-10.0)
[2019-12-03] MEDS: vancomycin 1,000 MG in sodium chloride 0.9% 250 ML 250 MG IV (23:18)
[2019-12-03 23:27] LABS: Alanine Aminotransferase 15 U/L (0-33); Albumin Level 4.4 g/dL (3.5-5.2); Alkaline Phosphatase 75 IU/L (35-105); Anion Gap 15.9 (5-19); Aspartate Amino Transferase 14 U/L (0-32); Blood Urea Nitrogen 12 mg/dL (6-20); Calcium 10.3 mg/dL (8.5-10.5); Carbon Dioxide 24 mmol/L (22-29); Chloride 101 mmol/L (98-107); Glomerular Filtration Rate 85.4 mL/min (90-130); Glucose 100 mg/dL (65-115); Osmolality Calculated 280 mOsm/kg (285-295); Potassium 3.9 mmol/L (3.5-5.1); Sodium 137 mmol/L (136-145); Total Bilirubin 0.2 mg/dL (0.15-1.2); Total Protein 7.4 g/dL (6.6-8.7)
[2019-12-03 23:43] VITALS: BP 132/84; PULSE 88; RESP 16; O2SAT 98
== END 2019-12-04 00:25 | disposition home or self-care (01) ==
PROVIDERS: Emergency Provider Physician Assistant; Family Provider Nurse Practitioner; PCP Family Medicine
DX: L02.414 Cutaneous abscess of left upper limb (principal); L03.114 Cellulitis of left upper limb; F17.210 Nicotine dependence, cigarettes, uncomplicated
CPT/HCPCS: 12345; 80053; 85025; 87070; 87075; 87077; 87186; 87205; 96365; 96375; 99283; 99284; J2270; J2405; J3370; J7050

== ENCOUNTER 2019-12-18 15:35 | Emergency (ER) | payer BC, SELFPAY ==
[2019-12-18 15:52] VITALS: BP 144/85; PULSE 97; RESP 18; TEMP 37.4; O2SAT 99; BMI 38.2
--- NOTE | 2019-12-18 16:06 | ED_ITS ---
HPI - General Adult General: Chief complaint: General Medical Stated complaint: flank pain, nausea, migraine Time Seen by Provider: 12/18/19 15:59 Source: patient Mode of arrival: ambulatory Limitations: no limitations History of Present Illness: HPI narrative: Patient comes in today for complaints of headache for the last 3 days. Patient now reports that she also has left-sided flank pain starting this morning. Patient has a history of migraine headaches and takes monthly injection for better control of the headache. Patient also has a history of renal calculi. Patient appears well. Patient appears in mild to moderate pain. Review of Systems General: Reports: 10 or more systems reviewed and unremarkable except in HPI and below PFSH ED PFSH: Social History Smoking and tobacco status: current every day smoker cigarettes Packs smoked per day: 1 Alcohol intake: never Female Reproductive History: Date of last menstrual period: 11/18/19 Physical Exam Const: COMMON NORMALS: no apparent distress and oriented x3 GENERAL APPEARANCE: cooperative HENMT: COMMON NORMALS: normocephalic, TM's normal bilaterally and external nose normal HEAD & SCALP: normal to inspection and normocephalic NOSE: external nose normal TYMPANIC MEMBRANE: TM's normal bilaterally MOUTH: oral and palatal mucosa normal THROAT: posterior oropharynx normal Eye: GENERAL EYE: normal appearance of both eyes Neck/C-Spine: COMMON NORMALS: full ROM Lymph: LYMPHATIC: no lymphadenopathy noted Chest: COMMONS NORMALS: inspection of chest normal Resp: COMMON NORMALS: normal respiratory effort EFFORT & INSPECTION: Yes able to speak in complete sentences Cardio: COMMON NORMALS: regular rate and regular rhythm RATE: regular rate RHYTHM: regular rhythm GI: COMMON NORMALS: non-tender : COMMON NORMALS: Yes no CVA tenderness BLADDER/KIDNEY EXAM: Yes no CVA tenderness Back/Pelvis: COMMON NORMALS: no CVA tenderness and thoracic and lumbar spine normal to inspection Extremity: COMMON NORMALS: normal to inspection Neuro: COMMON NORMALS: oriented x3 and moves all extremities Psych: COMMON NORMALS: mental status grossly normal and cooperative Skin: COMMON NORMALS: no rashes or lesions noted GENERAL SKIN EXAM: no rashes or lesions noted Course Vital Signs: Vital signs: Vital Signs Temperature 99.4 F 12/18/19 15:52 Pulse Rate 97 05/01/20 15:52 Respiratory Rate 18 12/18/19 15:52 Blood Pressure 144/85 12/18/19 15:52 Pulse Oximetry 99 12/18/19 15:52 MDM - General Adult MDM Narrative: Medical decision making narrative: 1700, patient eloped prior to completion of services. She had been given IV fluids and 10 mg of Reglan for migraine headache. It was reported to me when x-ray had went to room [address] scan and it was found that she had removed her IV and had left the room. Laboratory values were normal, and urine did not show any blood. Suspect migraine headache with possible renal colic. Nursing attempted to find patient in the parking lot and was unable to locate her. Was unable to reassess after medication administration. Lab Data: Labs: Lab Results 12/18/19 12/18/19 12/18/19 Range/Units 15:59 16:13 16:13 WBC 10.0 (4.0-10.0) 10^3/ uL RBC 5.15 (4.1-5.3) 10^6/u L Hgb 14.1 (11.5-15.3) g/dL Hct 44.7 (37.0-47.0) % MCV 86.8 (81-99) fL MCH 27.4 L (28.0-34.0) pg MCHC 31.5 (30.0-36.0) g/dL RDW 13.7 (12.1-15.1) % Plt Count 264 (130-400) 10^3/c mm MPV 10.4 (7.4-10.4) fL Neut % (Auto) 64.5 % Lymph % (Auto) 27.5 % [place] % (Auto) 6.2 % Eos % (Auto) 1.2 % Baso % (Auto) 0.5 % Neut # (Auto) 6.4 (1.8-7.7) 10^3/u L Lymph # (Auto) 2.7 (0.8-4.8) 10^3/u L [place] # (Auto) 0.6 (0.2-0.9) 10^3/u L Eos # (Auto) 0.1 (0.0-0.8) 10^3/u L Baso # (Auto) 0.1 (0.0-0.1) 10^3/u L Nucleated RBC % (a uto) 0 % Nucleated RBCs # 0.0 /100WBC Sodium 138 (136-145) mmol/L Potassium 3.8 (3.5-5.1) mmol/L Chloride 103 (98-107) mmol/L Carbon Dioxide 22 (22-29) mmol/L Anion Gap 16.8 (5-19) BUN 8 (6-20) mg/dL Creatinine 0.9 (0.5-0.9) mg/dL GFR Calculation 74.0 L (90-130) mL/min Glucose 101 (65-115) mg/dL Calculated Osmolal ity 282 L (285-295) mOsm/k g Calcium 10.1 (8.5-10.5) mg/dL Total Bilirubin 0.4 (0.15-1.2) mg/dL AST 60 H (0-32) U/L ALT 52 H (0-33) U/L Alkaline Phosphata se 73 (35-105) IU/L Total Protein 7.8 (6.6-8.7) g/dL Albumin 4.7 (3.5-5.2) g/dL Globulin 3.1 (1.3-4.6) g/dL HCG, Qual (Negative) Urine Color Straw (Yellow) Urine Appearance Clear (CLEAR) Urine pH 5 (5-7) Ur Specific Gravit y 1.015 (1.005-1.030) Urine Protein Neg (Negative) Urine Glucose (UA) 4+ H (Normal) Urine Ketones Negative (Negative) Urine Blood Neg (Negative) Urine Nitrate Negative (Negative) Urine Bilirubin Neg (NEGATIVE) Urine Urobilinogen Norm (Negative) mg/dL Ur Leukocyte Sandra ase Negative (Negative) 12/18/19 Range/Units 16:13 WBC (4.0-10.0) 10^3/ uL RBC (4.1-5.3) 10^6/u L Hgb (11.5-15.3) g/dL Hct (37.0-47.0) % MCV (81-99) fL MCH (28.0-34.0) pg MCHC (30.0-36.0) g/dL RDW (12.1-15.1) % Plt Count (130-400) 10^3/c mm MPV (7.4-10.4) fL Neut % (Auto) % Lymph % (Auto) % [place] % (Auto) % Eos % (Auto) % Baso % (Auto) % Neut # (Auto) (1.8-7.7) 10^3/u L Lymph # (Auto) (0.8-4.8) 10^3/u L [place] # (Auto) (0.2-0.9) 10^3/u L Eos # (Auto) (0.0-0.8) 10^3/u L Baso # (Auto) (0.0-0.1) 10^3/u L Nucleated RBC % (a uto) % Nucleated RBCs # /100WBC Sodium (136-145) mmol/L Potassium (3.5-5.1) mmol/L Chloride (98-107) mmol/L Carbon Dioxide (22-29) mmol/L Anion Gap (5-19) BUN (6-20) mg/dL Creatinine (0.5-0.9) mg/dL GFR Calculation (90-130) mL/min Glucose (65-115) mg/dL Calculated Osmolal ity (285-295) mOsm/k g Calcium (8.5-10.5) mg/dL Total Bilirubin (0.15-1.2) mg/dL AST (0-32) U/L ALT (0-33) U/L Alkaline Phosphata se (35-105) IU/L Total Protein (6.6-8.7) g/dL Albumin (3.5-5.2) g/dL Globulin (1.3-4.6) g/dL HCG, Qual Negative (Negative) Urine Color (Yellow) Urine Appearance (CLEAR) Urine pH (5-7) Ur Specific Gravit y (1.005-1.030) Urine Protein (Negative) Urine Glucose (UA) (Normal) Urine Ketones (Negative) Urine Blood (Negative) Urine Nitrate (Negative) Urine Bilirubin (NEGATIVE) Urine Urobilinogen (Negative) mg/dL Ur Leukocyte Sandra ase (Negative) Discharge Plan Discharge Prescriptions: No Action clindamycin HCl 300 mg capsule 300 mg PO Q6H Qty: 40 RF: 0 ondansetron HCl [Zofran] 4 mg tablet 4 mg PO Q8H PRN (Reason: nausea and vomiting) Qty: 15 RF: 0 venlafaxine [Effexor XR] 75 mg capsule,extended release 24hr 75 mg PO QAM Qty: 90 RF: 0 Emgality Syringe 120 mg/mL syringe 240 mg SUBCUT ONCE Qty: 2 RF: 0 lithium carbonate 300 mg capsule 300 mg PO TID RF: 0 hydrocodone-acetaminophen 5-325 mg tablet 1 tab PO Q4H PRN (Reason: pain) Qty: 10 RF: 0 Coding Level of Care Code ED Customer Service Administrator for Chg Fwd Exam Comprehensive
[2019-12-18] MEDS: sodium chloride 0.9% 500 ML 999 ML IV (16:16)
[2019-12-18] MEDS: metoclopramide 5 mg/mL SDV 2 mL 10 MG IVP (16:17)
[2019-12-18 16:24] LABS: Basophils # 0.1 10^3/uL (0.0-0.1); Basophils % 0.5 %; Eosinophils # 0.1 10^3/uL (0.0-0.8); Eosinophils % 1.2 %; Hematocrit 44.7 % (37.0-47.0); Hemoglobin 14.1 g/dL (11.5-15.3); Lymphocytes # 2.7 10^3/uL (0.8-4.8); Lymphocytes % 27.5 %; Mean Corpuscular HGB Conc 31.5 g/dL (30.0-36.0); Mean Corpuscular Hemoglobin 27.4 pg (28.0-34.0); Mean Corpuscular Volume 86.8 fL (81-99); Mean Platelet Volume 10.4 fL (7.4-10.4); Monocytes # 0.6 10^3/uL (0.2-0.9); Monocytes % 6.2 %; Neutrophils # 6.4 10^3/uL (1.8-7.7); Neutrophils % 64.5 %; Nucleated Red Blood Cells % 0 %; Platelet Count 264 10^3/cmm (130-400); Red Blood Count 5.15 10^6/uL (4.1-5.3); Red Cell Distribution Width 13.7 % (12.1-15.1)
[2019-12-18 16:29] LABS: Add Urine Microscopic? NO
[2019-12-18 16:39] LABS: HCG, Serum Qual Negative (Negative)
[2019-12-18 16:45] LABS: Urine Appearance Clear (CLEAR); Urine Color Straw (Yellow)
[2019-12-18 16:46] LABS: Bilirubin Urine Neg (NEGATIVE); Blood Urine Neg (Negative); Glucose Urine UA 4+ (Normal); Ketones Urine Negative (Negative); Leukocyte Esterase Urine Negative (Negative); Nitrate Urine Negative (Negative); Protein Urine Neg (Negative); Specific Gravity, Urine 1.015 (1.005-1.030); Urobilinogen Urine Norm (Negative); pH Urine 5 (5-7)
[2019-12-18 16:46] LABS: Alanine Aminotransferase 52 U/L (0-33); Albumin Level 4.7 g/dL (3.5-5.2); Alkaline Phosphatase 73 IU/L (35-105); Anion Gap 16.8 (5-19); Aspartate Amino Transferase 60 U/L (0-32); Blood Urea Nitrogen 8 mg/dL (6-20); Calcium 10.1 mg/dL (8.5-10.5); Carbon Dioxide 22 mmol/L (22-29); Chloride 103 mmol/L (98-107); Globulin 3.1 g/dL (1.3-4.6); Glucose 101 mg/dL (65-115); Osmolality Calculated 282 mOsm/kg (285-295); Potassium 3.8 mmol/L (3.5-5.1); Sodium 138 mmol/L (136-145); Total Bilirubin 0.4 mg/dL (0.15-1.2); Total Protein 7.8 g/dL (6.6-8.7)
[2019-12-18 17:00] VITALS: RESP 16
== END 2019-12-18 17:02 | disposition left against medical advice (07) ==
PROVIDERS: Emergency Provider Nurse Practitioner Family; Family Provider Nurse Practitioner; PCP Family Medicine
DX: R10.9 Unspecified abdominal pain (principal); R11.0 Nausea; F17.210 Nicotine dependence, cigarettes, uncomplicated
CPT/HCPCS: 12345; 80053; 81003; 84703; 85025; 96360; 96361; 96374; 96375; 99283; J2765; J7040

== ENCOUNTER → 2019-12-23 11:12 | Outpatient (BNVA) | payer BC, SELFPAY | PROVIDERS: Family Provider Nurse Practitioner; PCP Family Medicine; Visit Provider Family Medicine | DX: F31.81 Bipolar II disorder (principal); L03.111 Cellulitis of right axilla | CPT/HCPCS: 80178 ==

== ENCOUNTER → 2019-12-30 08:28 | Outpatient (BNVA) | payer BC, SELFPAY | PROVIDERS: Family Provider Nurse Practitioner; PCP Family Medicine; Visit Provider Nurse Practitioner | DX: G43.709 Chronic migraine without aura, not intractable, without status migrainosus (principal) | CPT/HCPCS: 99213; 99999 ==

== ENCOUNTER → 2020-02-14 16:00 | Outpatient (BNVA) | payer BC, SELFPAY | PROVIDERS: Family Provider Nurse Practitioner; PCP Family Medicine; Visit Provider Nurse Practitioner | DX: Z20.828 Contact with and (suspected) exposure to other viral communicable diseases (principal); R05 Cough; B34.9 Viral infection, unspecified | CPT/HCPCS: 87635 ==

== ENCOUNTER 2020-03-03 23:17 | Emergency (ER) | payer BC, SELFPAY | END 2020-03-04 02:39 | LOC: ER 03-04 00:36 | PROVIDERS: Emergency Provider Emergency Medicine | DX: Z53.21 Procedure and treatment not carried out due to patient leaving prior to being seen by health care provider (principal) | CPT/HCPCS: 99281; 99282 ==

== ENCOUNTER 2020-03-04 07:34 | Emergency (ER) | payer BC, SELFPAY ==
[2020-03-04 07:37] VITALS: BMI 39.9
[2020-03-04 07:41] VITALS: BP 137/92; PULSE 102; RESP 16; TEMP 37; O2SAT 99
--- NOTE | 2020-03-04 07:51 | ED_ITS ---
Documented by User: KALYN Jorge 03/04/20 09:56 HPI - Headache General: Chief Complaint: Headache Stated Complaint: MIGRAINE/INSECT BITE Time Seen by Provider: 03/04/20 07:41 History of Present Illness: HPI Narrative: 29-year-old female patient presents to the emergency department with complaints of migraine headache x24 hours; she reports., My typical migraine , states has attempted [id number] ibuprofen and Excedrin. Does not have ketorolac promethazine at home. States not able to keep down Zofran. She denies known triggers. She is also complaining of questionable insect bite versus ingrown hair to the right upper thigh. Reports tender with slight drainage, placed LANA cream to the area without improvement. She denies tick bite, denies history of MRSA. She denies fever chills. MD elicited complaint: migraine Onset (ago): hour(s) (24) Onset description: gradually Location: right, parietal and band-like Severity: similar to previous episodes Pain scale (0-10): 7 Quality & Timing: throbbing, pulsatile, squeezing, constant and similar to previous headaches Exacerbating factors: light and noise Relieving factors: rest and dark room Associated symptoms: Reports nausea and vomiting; Deny chest pain, diaphoresis or fever(s) Treatments prior to arrival: ibuprofen and antiemetic Review of Systems General: Reports: 10 or more systems reviewed and unremarkable except in HPI and below Const: Denies: fever(s), chills or diaphoresis Eyes: Denies: blurry vision or eye redness ENMT: Denies: throat pain, dental pain or disequilibrium Card: Denies: chest pain, palpitations or irregular heart rhythm Resp: Denies: dyspnea, productive cough, non-productive cough or wheezing GI: Reports: nausea and vomiting; Denies: abdominal pain, bloating or hematochezia : Denies: difficulty voiding or dysuria Musc: Denies: neck pain or back pain Skin/Breast: Reports: skin tenderness (Right thigh); Denies: pruritus Neuro: Reports: headache(s); Denies: numbness in extremities, weakness in extremities, dizziness, behavioral changes or seizure-like activity Miah/Lymph: Denies: easy bruising PFSH ED PFSH: Medical History Bipolar 2 disorder Chronic migraine without aura, not intractable, without status migrainosus Surgical History H/O hand surgery Family History Other Hypertension Social History Smoking and tobacco status: current every day smoker cigarettes Packs smoked per day: 1 Alcohol intake: never History of recent travel: No Female Reproductive History: Date of last menstrual period: 02/19/20 Physical Exam Const: COMMON NORMALS: patient oriented x3 and healthy appearing GENERAL APPEARANCE: cooperative NUTRITIONAL APPEARANCE: obese OTHER: Appears uncomfortable, complaining of headache HENMT: COMMON NORMALS: normocephalic and Normal external nose present HEAD & SCALP: normocephalic and scalp tenderness (Right parietal) NOSE: Normal external nose present MOUTH: moist mucous membranes abnormal (Dry mucous membranes) Eye: COMMON NORMALS: Equal, round and reactive pupils present and EOMs intact bilaterally GENERAL EYE: appearance normal, both eyes and all related structures PUPIL: Yes Equal, round and reactive pupils present Neck/C-Spine: COMMON NORMALS: full ROM and no lymphadenopathy GENERAL: Yes normal visual inspection, Yes trachea midline and No Meningeal signs present CERVICAL SPINE: Yes cervical ROM normal Lymph: LYMPHATIC: no lymphadenopathy noted Chest: COMMONS NORMALS: normal inspection of the chest Resp: COMMON NORMALS: normal respiratory effort and clear to auscultation bilaterally AUSCULTATION: clear to auscultation bilaterally Cardio: COMMON NORMALS: regular rhythm RHYTHM: regular rhythm GI: COMMON NORMALS: Normal to inspection, nondistended, normoactive bowel sounds present Back/Pelvis: COMMON NORMALS: thoracic and lumbar spine normal to inspection Extremity: COMMON NORMALS: normal to inspection and capillary refill normal Neuro: RAMONITA COMA SCALE: document GCS findings Ramonita coma scale eye opening: Spontaneous [place] coma scale verbal response: Orientated Ramonita coma scale motor response: Obey commands Ramonita coma scale total score: 15 COMMON NORMALS: patient oriented x3, moves all extremities, no focal motor deficits and gait normal SPEECH: speech normal MOTOR EXAM: 5/5 motor strength present throughout Right pupil size (mm): 4 Left pupil size (mm): 4 Psych: COMMON NORMALS: mental status grossly normal, Normal thought process present and cooperative ACTIVITY/MOTOR BEHAVIOR: Yes appropriate eye contact THOUGHT PROCESS: Normal thought process present Course ED course: Patient presented to the emergency department with, migraine headache for the past 24 hours, she received IV diphenhydramine, Reglan, dexamethasone, Toradol. Reevaluation(s): Reevaluation #1: Patient reports improvement of migraine headache and is requesting to return home so she can sleep. She is requesting a work note. She was counseled regarding cellulitis from possible insect bite versus early staph infection to the right upper thigh. Agrees with use of antibiotics, warning signs and symptoms were discussed with the patient Time: 09:20 Vital Signs: Vital signs: Vital Signs Temperature 98.4 F 03/04/20 09:51 Pulse Rate 90 03/04/20 09:51 Respiratory Rate 17 03/04/20 09:51 Blood Pressure 136/77 03/04/20 09:51 Pulse Oximetry 96 03/04/20 09:51 MDM - Headache Differential Diagnosis: Differential diagnosis headache: Likely migraine, tension headache, subarachnoid hemorrhage and meningitis Discharge Plan Discharge Patient Disposition: Home, Self-Care Condition: Stable Prescriptions: New Bactrim DS 800-160 mg tablet 1 tab PO BID 7 Days Qty: 14 RF: 0 Discontinued ketorolac 10 mg tablet 10 mg PO ONCE PRN (Reason: pain) Qty: 20 RF: 1 No Action promethazine 25 mg tablet 25 mg PO ONCE PRN (Reason: nausea) Qty: 20 RF: 1 ondansetron HCl [Zofran] 4 mg tablet 4 mg PO Q8H PRN (Reason: nausea and vomiting) Qty: 14 RF: 0 venlafaxine 150 mg capsule,extended release 24hr 150 mg PO DAILY Qty: 30 RF: 2 Discharge Orders: Discharge Order (Routine); Ordered 03/04/20 Ordered By: Vy Pope Discharge Diet: Advance as tolerated and Clear Liquid Discharge Activity: Limit activity as instructed Patient Instructions: Cellulitis (ED), Insect Bite or Sting (ED), Migraine Headache (ED) Activity Restrictions/Additional Instructions: Rest at home today, advance activity as tolerated No driving for the next 12 hours Cool compresses to the insect bite to the right thigh, monitor for worsening signs and symptoms of infection such as increased redness, tenderness or drainage. Return to the emergency department if you develop fever/chills despite antibiotic use. Increase fluid intake, clear liquids for the first 6 to 8 hours then advance diet as tolerated to reduce nausea symptoms. Follow-up with your primary care provider due to migraine headache you experienced today. Prophylactic treatment may be recommended. Complete antibiotics until all gone, take with food and large glass of water. Follow-up with your primary care Saturday if symptoms are not improving. Return to the emergency department immediately for the worst headache of your life. Further evaluation will be needed if you develop neck stiffness, fever, chills. 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 Documented by User: Dejah Clark MD 03/04/20 20:39 HPI - Headache General: Chief Complaint: Headache Stated Complaint: MIGRAINE/INSECT BITE Time Seen by Provider: 03/04/20 07:41 PFS ED PFSH: Medical History Bipolar 2 disorder Chronic migraine without aura, not intractable, without status migrainosus Surgical History H/O hand surgery Family History Other Hypertension Social History Smoking and tobacco status: current every day smoker cigarettes Packs smoked per day: 1 Alcohol intake: never History of recent travel: No Course Vital Signs: Vital signs: Vital Signs Temperature 98.4 F 03/04/20 09:51 Pulse Rate 90 03/04/20 09:51 Respiratory Rate 17 03/04/20 09:51 Blood Pressure 136/77 03/04/20 09:51 Pulse Oximetry 96 03/04/20 09:51 Discharge Plan Discharge Patient Disposition: Home, Self-Care Condition: Stable Prescriptions: New Bactrim DS 800-160 mg tablet 1 tab PO BID 7 Days Qty: 14 RF: 0 Discontinued ketorolac 10 mg tablet 10 mg PO ONCE PRN (Reason: pain) Qty: 20 RF: 1 No Action promethazine 25 mg tablet 25 mg PO ONCE PRN (Reason: nausea) Qty: 20 RF: 1 ondansetron HCl [Zofran] 4 mg tablet 4 mg PO Q8H PRN (Reason: nausea and vomiting) Qty: 14 RF: 0 venlafaxine 150 mg capsule,extended release 24hr 150 mg PO DAILY Qty: 30 RF: 2 Discharge Orders: Discharge Order (Routine); Ordered 03/04/20 Ordered By: Vy Pope Discharge Diet: Advance as tolerated and Clear Liquid Discharge Activity: Limit activity as instructed Patient Instructions: Cellulitis (ED), Insect Bite or Sting (ED), Migraine Headache (ED) Activity Restrictions/Additional Instructions: Rest at home today, advance activity as tolerated No driving for the next 12 hours Cool compresses to the insect bite to the right thigh, monitor for worsening signs and symptoms of infection such as increased redness, tenderness or drainage. Return to the emergency department if you develop fever/chills despite antibiotic use. Increase fluid intake, clear liquids for the first 6 to 8 hours then advance diet as tolerated to reduce nausea symptoms. Follow-up with your primary care provider due to migraine headache you experienced today. Prophylactic treatment may be recommended. Complete antibiotics until all gone, take with food and large glass of water. Follow-up with your primary care Saturday if symptoms are not improving. Return to the emergency department immediately for the worst headache of your life. Further evaluation will be needed if you develop neck stiffness, fever, chills. 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
[2020-03-04] MEDS: sodium chloride 0.9% 500 ML 999 ML IV (08:30)
[2020-03-04] MEDS: metoclopramide 5 mg/mL SDV 2 mL 10 MG IVP (08:32)
[2020-03-04] MEDS: ketorolac 30 mg/mL INJ IVP (08:34)
[2020-03-04] MEDS: dexamethasone 4 mg/mL INJ 8 MG IVP (08:35)
[2020-03-04 08:38] VITALS: BP 130/83; PULSE 101; RESP 16; O2SAT 98
[2020-03-04] MEDS: diphenhydrAMINE 50 mg/mL SDV 1mL 25 MG IVP (08:48)
[2020-03-04 09:00] VITALS: BP 120/80; PULSE 81; RESP 18; O2SAT 99
[2020-03-04 09:51] VITALS: BP 136/77; PULSE 90; RESP 17; TEMP 36.9; O2SAT 96
== END 2020-03-04 09:51 | disposition home or self-care (01) ==
PROVIDERS: Emergency Provider Nurse Practitioner Family
DX: R51 Headache (principal); F17.210 Nicotine dependence, cigarettes, uncomplicated
CPT/HCPCS: 12345; 96374; 96375; 99282; 99283; J1100; J1200; J1885; J2765; J7040

== ENCOUNTER 2020-05-05 12:21 | Emergency (ER) | payer BC, SELFPAY ==
[2020-05-05 12:28] VITALS: BP 147/88; PULSE 105; RESP 18; TEMP 36.5; O2SAT 98; BMI 39.9
[2020-05-05 13:52] LABS: Basophils # 0.1 10^3/uL (0.0-0.1); Basophils % 0.6 %; Eosinophils # 0.2 10^3/uL (0.0-0.8); Eosinophils % 1.6 %; Hematocrit 43.7 % (37.0-47.0); Hemoglobin 13.6 g/dL (11.5-15.3); Lymphocytes # 3.2 10^3/uL (0.8-4.8); Lymphocytes % 29.9 %; Mean Corpuscular HGB Conc 31.1 g/dL (30.0-36.0); Mean Corpuscular Hemoglobin 26.7 pg (28.0-34.0); Mean Corpuscular Volume 85.9 fL (81-99); Mean Platelet Volume 9.3 fL (7.4-10.4); Monocytes # 0.8 10^3/uL (0.2-0.9); Neutrophils # 6.51 10^3/uL (1.8-7.7); Neutrophils % 60.6 %; Nucleated Red Blood Cells % 0 %; Platelet Count 276 10^3/cmm (130-400); Red Blood Count 5.09 10^6/uL (4.1-5.3); Red Cell Distribution Width 13.6 % (12.1-15.1); White Blood Count 10.7 10^3/uL (4.0-10.0)
[2020-05-05 13:59] LABS: HCG, Serum Qual Negative (Negative)
[2020-05-05 14:06] LABS: Alanine Aminotransferase 17 U/L (0-33); Albumin Level 4.5 g/dL (3.5-5.2); Alkaline Phosphatase 82 IU/L (35-105); Anion Gap 15.1 (5-19); Aspartate Amino Transferase 16 U/L (0-32); Blood Urea Nitrogen 13 mg/dL (6-20); Calcium 9.7 mg/dL (8.5-10.5); Carbon Dioxide 23 mmol/L (22-29); Chloride 105 mmol/L (98-107); Globulin 3.1 g/dL (1.3-4.6); Glomerular Filtration Rate 84.8 mL/min (90-130); Glucose 91 mg/dL (65-115); Lipase 23 U/L (13-60); Magnesium 2.2 mg/dL (1.7-2.3); Osmolality Calculated 288 mOsm/kg (285-295); Potassium 4.1 mmol/L (3.5-5.1); Sodium 139 mmol/L (136-145); Total Bilirubin 0.2 mg/dL (0.15-1.2); Total Protein 7.6 g/dL (6.6-8.7)
--- NOTE | 2020-05-05 14:14 | W.ED.ABDPA2 ---
HPI - Abdominal Pain General: Chief Complaint: Abdominal Pain Stated Complaint: RIGHT SIDE PAIN Time Seen by Provider: 05/05/20 13:48 Related Data: Date of Last Menstrual Period: 02/19/20 REPLACED BY [facility] ED PFSH: Medical History (Updated 04/21/20 @ 10:29 by Jacqui Peraza DO) Bipolar 2 disorder Chronic migraine without aura, not intractable, without status migrainosus Surgical History (Updated 04/21/20 @ 10:29 by Jacqui Peraza DO) H/O hand surgery History of renal stent Family History Other Hypertension Social History Smoking and tobacco status: current every day smoker cigarettes Packs smoked per day: 0.5 Alcohol intake: never History of recent travel: No Current gender identity: Female Female Reproductive History: Date of last menstrual period: 02/19/20 Course Vital Signs: Vital signs: Vital Signs Temperature 97.7 F 05/05/20 12:28 Pulse Rate 105 H 05/05/20 12:28 Respiratory Rate 18 05/05/20 12:28 Blood Pressure 147/88 05/05/20 12:28 Pulse Oximetry 98 05/05/20 12:28 MDM - Abdominal Pain Lab Data: Labs: Lab Results 05/05/20 05/05/20 05/05/20 Range/Units 13:28 13:28 13:28 WBC 10.7 H (4.0-10.0) 10^3/ uL RBC 5.09 (4.1-5.3) 10^6/u L Hgb 13.6 (11.5-15.3) g/dL Hct 43.7 (37.0-47.0) % MCV 85.9 (81-99) fL MCH 26.7 L (28.0-34.0) pg MCHC 31.1 (30.0-36.0) g/dL RDW 13.6 (12.1-15.1) % Plt Count 276 (130-400) 10^3/c mm MPV 9.3 (7.4-10.4) fL Neut % (Auto) 60.6 % Lymph % (Auto) 29.9 % Crisp % (Auto) 7.0 % Eos % (Auto) 1.6 % Baso % (Auto) 0.6 % Neut # (Auto) 6.51 (1.8-7.7) 10^3/u L Lymph # (Auto) 3.2 (0.8-4.8) 10^3/u L Crisp # (Auto) 0.8 (0.2-0.9) 10^3/u L Eos # (Auto) 0.2 (0.0-0.8) 10^3/u L Baso # (Auto) 0.1 (0.0-0.1) 10^3/u L Nucleated RBC % (a uto) 0 % Nucleated RBCs # 0.0 /100WBC Sodium 139 (136-145) mmol/L Potassium 4.1 (3.5-5.1) mmol/L Chloride 105 (98-107) mmol/L Carbon Dioxide 23 (22-29) mmol/L Anion Gap 15.1 (5-19) BUN 13 (6-20) mg/dL Creatinine 0.8 (0.5-0.9) mg/dL Glucose 91 (65-115) mg/dL Calculated Osmolal ity 288 (285-295) mOsm/k g Calcium 9.7 (8.5-10.5) mg/dL Magnesium 2.2 (1.7-2.3) mg/dL Total Bilirubin 0.2 (0.15-1.2) mg/dL AST 16 (0-32) U/L ALT 17 (0-33) U/L Alkaline Phosphata se 82 (35-105) IU/L Total Protein 7.6 (6.6-8.7) g/dL Albumin 4.5 (3.5-5.2) g/dL Globulin 3.1 (1.3-4.6) g/dL Lipase 23 (13-60) U/L HCG, Qual Negative (Negative) Discharge Plan Discharge Prescriptions: No Action promethazine 25 mg tablet 25 mg PO ONCE PRN (Reason: nausea) Qty: 20 RF: 1 ondansetron HCl [Zofran] 4 mg tablet 4 mg PO Q8H PRN (Reason: nausea and vomiting) Qty: 14 RF: 0 hydroxyzine HCl 25 mg tablet 25 mg PO TID PRNRF: 0 trazodone 100 mg tablet 100 mg PO DAILY RF: 0 venlafaxine 150 mg capsule,extended release 24hr 150 mg PO DAILY Qty: 30 RF: 0 gabapentin 300 mg capsule 300 mg PO TID Qty: 90 RF: 0 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
== END 2020-05-05 14:27 | disposition left against medical advice (07) ==
PROVIDERS: Emergency Provider Emergency Medicine
DX: R10.9 Unspecified abdominal pain (principal); F17.210 Nicotine dependence, cigarettes, uncomplicated
CPT/HCPCS: 12345; 36415; 80053; 83690; 83735; 84703; 85025; 99281

== ENCOUNTER → 2020-06-13 13:03 | Outpatient (BNVA) | payer BC, SELFPAY | PROVIDERS: PCP Family Medicine; Visit Provider Nurse Practitioner | DX: F41.1 Generalized anxiety disorder (principal); F11.21 Opioid dependence, in remission; F32.9 Major depressive disorder, single episode, unspecified; F17.219 Nicotine dependence, cigarettes, with unspecified nicotine-induced disorders; G43.709 Chronic migraine without aura, not intractable, without status migrainosus | CPT/HCPCS: 80053; 85025; 99204; 99213 ==

== ENCOUNTER → 2020-06-16 09:16 | Outpatient (BNVA) | payer BC, SELFPAY | PROVIDERS: PCP Family Medicine; Visit Provider Psychiatry & Neurology Psychiatry | DX: F32.9 Major depressive disorder, single episode, unspecified (principal); F11.21 Opioid dependence, in remission; F41.1 Generalized anxiety disorder; F17.219 Nicotine dependence, cigarettes, with unspecified nicotine-induced disorders | CPT/HCPCS: 99214 ==

== ENCOUNTER → 2020-06-30 08:17 | Outpatient (BNVA) | payer BC, SELFPAY | PROVIDERS: PCP Family Medicine; Visit Provider Psychiatry & Neurology Psychiatry | DX: F41.1 Generalized anxiety disorder (principal); F11.21 Opioid dependence, in remission; F32.9 Major depressive disorder, single episode, unspecified; F17.219 Nicotine dependence, cigarettes, with unspecified nicotine-induced disorders; F43.12 Post-traumatic stress disorder, chronic | CPT/HCPCS: 99213 ==

== ENCOUNTER → 2020-07-28 08:19 | Outpatient (BNVA) | payer BC, SELFPAY | PROVIDERS: PCP Family Medicine; Visit Provider Psychiatry & Neurology Psychiatry | DX: F32.9 Major depressive disorder, single episode, unspecified (principal); F41.1 Generalized anxiety disorder; F11.21 Opioid dependence, in remission; F17.219 Nicotine dependence, cigarettes, with unspecified nicotine-induced disorders | CPT/HCPCS: 99213 ==

== ENCOUNTER → 2020-08-31 07:49 | Outpatient (BNVA) | payer BC, SELFPAY | PROVIDERS: PCP Family Medicine; Visit Provider Psychiatry & Neurology Psychiatry | DX: F41.1 Generalized anxiety disorder (principal); F11.21 Opioid dependence, in remission; F32.9 Major depressive disorder, single episode, unspecified; F17.219 Nicotine dependence, cigarettes, with unspecified nicotine-induced disorders | CPT/HCPCS: 80307; 80346; 99213 ==

== ENCOUNTER → 2020-11-11 10:39 | Outpatient (BNVA) | payer OTHER, SELFPAY | PROVIDERS: PCP Family Medicine; Visit Provider Psychiatry & Neurology Psychiatry | DX: F32.9 Major depressive disorder, single episode, unspecified (principal); F41.1 Generalized anxiety disorder; F11.21 Opioid dependence, in remission; F17.219 Nicotine dependence, cigarettes, with unspecified nicotine-induced disorders | CPT/HCPCS: 80061; 80307; 83036 ==

== ENCOUNTER → 2021-01-24 10:52 | Outpatient (BNVA) | payer OTHER, SELFPAY ==
[2020-11-15 09:11] VITALS: BP 141/92; BMI 41.9
== END ==
PROVIDERS: PCP Family Medicine; Visit Provider Psychiatry & Neurology Psychiatry
DX: F41.1 Generalized anxiety disorder (principal); F11.21 Opioid dependence, in remission; F32.9 Major depressive disorder, single episode, unspecified; F17.219 Nicotine dependence, cigarettes, with unspecified nicotine-induced disorders
CPT/HCPCS: 80307

== ENCOUNTER → 2021-04-18 10:56 | Outpatient (BNVA) | payer OTHER, SELFPAY ==
[2020-11-15 09:11] VITALS: BP 141/92; BMI 41.9
== END ==
PROVIDERS: PCP Family Medicine; Visit Provider Psychiatry & Neurology Psychiatry
DX: F41.1 Generalized anxiety disorder (principal); F11.21 Opioid dependence, in remission; F32.9 Major depressive disorder, single episode, unspecified; F17.219 Nicotine dependence, cigarettes, with unspecified nicotine-induced disorders
CPT/HCPCS: 80307

== ENCOUNTER → 2021-05-11 12:11 | Outpatient (BNVA) | payer OTHER, SELFPAY ==
[2020-11-15 09:11] VITALS: BP 141/92; BMI 41.9
== END ==
PROVIDERS: PCP Family Medicine; Visit Provider Psychiatry & Neurology Psychiatry
DX: F41.1 Generalized anxiety disorder (principal); F11.21 Opioid dependence, in remission; F32.9 Major depressive disorder, single episode, unspecified; F17.219 Nicotine dependence, cigarettes, with unspecified nicotine-induced disorders
CPT/HCPCS: 80307

== ENCOUNTER → 2021-07-03 12:45 | Outpatient (BNVA) | payer OTHER, SELFPAY ==
[2020-11-15 09:11] VITALS: BP 141/92; BMI 41.9
== END ==
PROVIDERS: PCP Family Medicine; Visit Provider Psychiatry & Neurology Psychiatry
DX: F41.1 Generalized anxiety disorder (principal); F11.21 Opioid dependence, in remission; F32.9 Major depressive disorder, single episode, unspecified; F17.219 Nicotine dependence, cigarettes, with unspecified nicotine-induced disorders
CPT/HCPCS: 80307

== ENCOUNTER → 2021-08-28 14:03 | Outpatient (BNVA) | payer OTHER, SELFPAY ==
[2020-11-15 09:11] VITALS: BP 141/92; BMI 41.9
== END ==
PROVIDERS: PCP Family Medicine; Visit Provider Psychiatry & Neurology Psychiatry
DX: F11.21 Opioid dependence, in remission (principal)
CPT/HCPCS: 80307

== ENCOUNTER → 2021-08-31 12:35 | Outpatient (BNVA) | payer OTHER, SELFPAY ==
[2020-11-15 09:11] VITALS: BP 141/92; BMI 41.9
== END ==
PROVIDERS: PCP Family Medicine; Visit Provider Psychiatry & Neurology Neurology
DX: F41.1 Generalized anxiety disorder (principal)
CPT/HCPCS: 99398

== ENCOUNTER → 2021-10-16 11:57 | Outpatient (BNVA) | payer OTHER, SELFPAY ==
[2020-11-15 09:11] VITALS: BP 141/92; BMI 41.9
== END ==
PROVIDERS: PCP Family Medicine; Visit Provider Psychiatry & Neurology Psychiatry
DX: F11.21 Opioid dependence, in remission (principal); Z79.899 Other long term (current) drug therapy
CPT/HCPCS: 80307

== ENCOUNTER → 2022-01-08 15:45 | Outpatient (BNVA) | payer SELFPAY ==
[2020-11-15 09:11] VITALS: BP 141/92; BMI 41.9
== END ==
PROVIDERS: PCP Family Medicine; Visit Provider Family Medicine
DX: N92.1 Excessive and frequent menstruation with irregular cycle (principal)
CPT/HCPCS: 80053; 80061; 84443; 85025

== ENCOUNTER → 2022-01-18 13:34 | Outpatient (BNVA) | payer OTHER, SELFPAY ==
[2020-11-15 09:11] VITALS: BP 141/92; BMI 41.9
== END ==
PROVIDERS: PCP Family Medicine; Visit Provider Family Medicine
DX: N92.1 Excessive and frequent menstruation with irregular cycle (principal)
CPT/HCPCS: 80053; 80061; 84443

== ENCOUNTER → 2022-02-14 10:58 | Outpatient (BNVA) | payer OTHER, SELFPAY ==
[2020-11-15 09:11] VITALS: BP 141/92; BMI 41.9
== END ==
PROVIDERS: PCP Family Medicine; Visit Provider Psychiatry & Neurology Psychiatry
DX: F41.1 Generalized anxiety disorder (principal); F11.21 Opioid dependence, in remission; F32.9 Major depressive disorder, single episode, unspecified; F17.219 Nicotine dependence, cigarettes, with unspecified nicotine-induced disorders; Z79.899 Other long term (current) drug therapy
CPT/HCPCS: 80307

== ENCOUNTER 2022-04-03 09:51 | Outpatient (CLI) | payer OTHER, SELFPAY ==
[2020-11-15 09:11] VITALS: BP 141/92; BMI 41.9
[2022-04-03 11:00] LABS: Ferritin 41 ng/mL (15-150); Iron 48 ug/dL (37-145); Percent Saturation 14.7 % (20-50); Total Iron Binding Capacity 326 mcg/dl; Unsaturated Iron Binding 278 ug/dL (112-347)
[2022-04-03 11:14] LABS: Vitamin B12 272 pg/mL (232-1245)
[2022-04-03 11:15] LABS: Folate Level 9.8 ng/mL (4.8-37.3)
[2022-04-09 12:38] LABS: Factor Viii, Activity 98 % normal (50-180); Partial Thromboplastin Time, A 27 sec (23-32)
[2022-04-09 12:54] LABS: Von Willebrand Factor (Rcf) 118 % normal (42-200); Von Willebrand Factor Ag 170 % (50-217)
== END 2022-04-03 09:52 | disposition home or self-care (01) ==
LOC: LAB 09:53
PROVIDERS: PCP Family Medicine; Visit Provider Nurse Practitioner Women's Health
DX: N93.9 Abnormal uterine and vaginal bleeding, unspecified (principal)
CPT/HCPCS: 36415; 82607; 82728; 82746; 83540; 83550; 85240; 85245; 85246; 87624

== ENCOUNTER → 2022-04-19 07:38 | Outpatient (BNVA) | payer OTHER, SELFPAY ==
[2020-11-15 09:11] VITALS: BP 141/92; BMI 41.9
== END ==
PROVIDERS: PCP Family Medicine; Visit Provider Obstetrics & Gynecology
DX: E28.2 Polycystic ovarian syndrome (principal); N93.9 Abnormal uterine and vaginal bleeding, unspecified
CPT/HCPCS: 76830; 81025; 88175; 88305

== ENCOUNTER → 2022-05-16 11:32 | Outpatient (BNVA) | payer OTHER, SELFPAY ==
[2020-11-15 09:11] VITALS: BP 141/92; BMI 41.9
== END ==
PROVIDERS: PCP Family Medicine; Visit Provider Psychiatry & Neurology Psychiatry
DX: F41.1 Generalized anxiety disorder (principal); F11.21 Opioid dependence, in remission; F32.9 Major depressive disorder, single episode, unspecified; F17.219 Nicotine dependence, cigarettes, with unspecified nicotine-induced disorders; Z79.899 Other long term (current) drug therapy; F17.290 Nicotine dependence, other tobacco product, uncomplicated
CPT/HCPCS: 80307

== ENCOUNTER → 2022-07-05 13:30 | Outpatient (BNVA) | payer OTHER, SELFPAY ==
[2020-11-15 09:11] VITALS: BP 141/92; BMI 41.9
== END ==
PROVIDERS: PCP Family Medicine; Visit Provider Nurse Practitioner Women's Health
DX: R87.615 Unsatisfactory cytologic smear of cervix (principal); N93.9 Abnormal uterine and vaginal bleeding, unspecified; E28.2 Polycystic ovarian syndrome; N72 Inflammatory disease of cervix uteri
CPT/HCPCS: 88175

== ENCOUNTER → 2022-10-10 12:57 | Outpatient (BNVA) | payer OTHER, SELFPAY ==
[2020-11-15 09:11] VITALS: BP 141/92; BMI 41.9
== END ==
PROVIDERS: PCP Family Medicine; Visit Provider Psychiatry & Neurology Psychiatry
DX: F11.21 Opioid dependence, in remission (principal); F41.1 Generalized anxiety disorder; F32.9 Major depressive disorder, single episode, unspecified; F17.290 Nicotine dependence, other tobacco product, uncomplicated; Z79.899 Other long term (current) drug therapy
CPT/HCPCS: 80307

== ENCOUNTER → 2022-12-27 13:48 | Outpatient (BNVA) | payer OTHER, SELFPAY ==
[2020-11-15 09:11] VITALS: BP 141/92; BMI 41.9
== END ==
PROVIDERS: PCP Family Medicine; Visit Provider Psychiatry & Neurology Psychiatry
DX: F11.21 Opioid dependence, in remission (principal); F41.1 Generalized anxiety disorder; F32.9 Major depressive disorder, single episode, unspecified; Z79.899 Other long term (current) drug therapy
CPT/HCPCS: 80053; 80307; 86705; 86706; 86709; 86803; 87340

== ENCOUNTER → 2022-12-31 12:54 | Outpatient (BNVA) | payer OTHER, SELFPAY ==
[2020-11-15 09:11] VITALS: BP 141/92; BMI 41.9
== END ==
PROVIDERS: PCP Family Medicine; Visit Provider Registered Nurse Neonatal Intensive Care
DX: N39.0 Urinary tract infection, site not specified (principal)
CPT/HCPCS: 81000

== ENCOUNTER → 2023-06-27 13:43 | Outpatient (BNVA) | payer OTHER, SELFPAY ==
[2020-11-15 09:11] VITALS: BP 141/92; BMI 41.9
== END ==
PROVIDERS: PCP Family Medicine; Visit Provider Psychiatry & Neurology Psychiatry
DX: F41.1 Generalized anxiety disorder (principal); Z79.899 Other long term (current) drug therapy; F11.21 Opioid dependence, in remission; F32.9 Major depressive disorder, single episode, unspecified; F17.290 Nicotine dependence, other tobacco product, uncomplicated
CPT/HCPCS: 80307

== ENCOUNTER → 2023-09-26 13:17 | Outpatient (BNVA) | payer OTHER, SELFPAY ==
[2020-11-15 09:11] VITALS: BP 141/92; BMI 41.9
== END ==
PROVIDERS: PCP Family Medicine; Visit Provider Psychiatry & Neurology Psychiatry
DX: F41.1 Generalized anxiety disorder (principal); F32.9 Major depressive disorder, single episode, unspecified; F11.21 Opioid dependence, in remission; Z79.899 Other long term (current) drug therapy; F17.290 Nicotine dependence, other tobacco product, uncomplicated; E28.2 Polycystic ovarian syndrome
CPT/HCPCS: 80053; 80061; 80307; 83036; 84443; 85025

== ENCOUNTER → 2023-12-25 14:49 | Outpatient (BNVA) | payer OTHER, SELFPAY ==
[2020-11-15 09:11] VITALS: BP 141/92; BMI 41.9
== END ==
PROVIDERS: PCP Family Medicine; Visit Provider Psychiatry & Neurology Psychiatry
DX: F11.21 Opioid dependence, in remission (principal); Z79.899 Other long term (current) drug therapy; F41.1 Generalized anxiety disorder; F32.9 Major depressive disorder, single episode, unspecified
CPT/HCPCS: 80307

== ENCOUNTER → 2024-03-26 15:13 | Outpatient (BNVA) | payer OTHER, SELFPAY ==
[2020-11-15 09:11] VITALS: BP 141/92; BMI 41.9
== END ==
PROVIDERS: PCP Family Medicine; Visit Provider Psychiatry & Neurology Psychiatry
DX: F11.21 Opioid dependence, in remission (principal); Z79.899 Other long term (current) drug therapy
CPT/HCPCS: 80307

== ENCOUNTER 2024-06-28 14:31 | Emergency (ER) | payer OTHER, SELFPAY ==
[2020-11-15 09:11] VITALS: BP 141/92; BMI 41.9
[2024-06-28] VITALS (7 sets, daily range): BP systolic 145–160; BP diastolic 84–127; PULSE 79–112; RESP 20; TEMP 36.6; O2SAT 97–99; BMI 45.7
--- NOTE | 2024-06-28 14:42 | ECG_ITS ---
[facility] Pat Name: Cuca Mcintosh Department: Room: Gender: Female [place]: : 1990 Requested By: Cole Mejia Order Number: [id number] Carine MD: Darline Garcia M.D. Measurements Intervals [place] Rate: 93 P: 44 OR: 149 QRS: 66 QRSD: 83 T: 53 QT: 321 QTc: 400 Interpretive Statements SINUS RHYTHM NONSPECIFIC T-WAVE ABNORMALITY Compared to ECG 03/21/2018 22:04:58 Sinus arrhythmia no longer present T-wave abnormality still present Electronically Signed On 07-02-2024 21:18:35 HORTICULTURAL NURSERY ASSISTANT by Darline Garcia M.D. [email or web address]
--- NOTE | 2024-06-28 15:40 | USR_ITS ---
PROCEDURE INFORMATION: Exam: US Abdomen, Limited; Right Upper Quadrant Exam date and time: 06/28/2024 4:09 PM Age: 33 years old Clinical indication: Abdominal pain; Generalized; Additional info: Ruq pain TECHNIQUE: Imaging protocol: Real time ultrasound of the abdomen with image documentation. Limited exam focused on the right upper quadrant. COMPARISON: US gall bladder [id number] 07/31/2017 2:17 AM FINDINGS: Liver: Mild hepatomegaly. Echogenic, consistent with fatty infiltration. Gallbladder: Cholelithiasis and questionable gallbladder wall thickening. No definite pericholecystic fluid. Positive sonographic Rowe's sign, as per the information technology specialist. This is a nonspecific finding. Biliary ducts: No stones. No ductal dilatation. Pancreas: Suboptimally visualized. Right kidney: No mass. No definite stones. No hydronephrosis. US/US gall bladder [id number] IMPRESSION: 1. Findings concerning for acute cholecystitis, as described above. If clinically indicated, HIDA scan may be useful for confirmation. 2. Mildly enlarged, fatty liver.
[2024-06-28 16:40] LABS: Basophils # 0.1 10^3/uL (0.0-0.1); Basophils % 0.7 %; Eosinophils # 0.1 10^3/uL (0.0-0.8); Eosinophils % 1.9 %; Hematocrit 39.3 % (36-47); Lymphocytes # 2.8 10^3/uL (0.8-4.8); Lymphocytes % 39.1 %; Mean Corpuscular HGB Conc 31.8 g/dL (30-55); Mean Corpuscular Hemoglobin 26.4 pg (27-33); Mean Corpuscular Volume 82.9 fl (85-98); Mean Platelet Volume 8.9 fL (7.4-10.4); Monocytes # 0.4 10^3/uL (0.2-0.9); Neutrophils # 3.74 10^3/uL (1.8-7.7); Nucleated Red Blood Cells % 0 %; Platelet Count 228 10^3/cmm (157-399); Red Blood Count 4.74 10^6/uL (3.85-5.65); Red Cell Distribution Width 13.5 % (12.1-15.1); White Blood Count 7.19 10^3/uL (3.29-11.43)
[2024-06-28] MEDS: ketorolac 30 mg/mL INJ IVP (16:45)
[2024-06-28] MEDS: sodium chloride 0.9% 1,000 ML 999 ML IV (16:45)
[2024-06-28 16:56] LABS: HCG, Serum Qual Negative (Negative)
[2024-06-28 17:00] LABS: Alanine Aminotransferase 14 U/L (0-33); Albumin Level 4.1 g/dL (3.5-5.2); Alkaline Phosphatase 99 U/L (35-105); Anion Gap 13.2 (5-19); Aspartate Amino Transferase 12 U/L (0-32); Blood Urea Nitrogen 8 mg/dL (6-20); Calcium 8.6 mg/dL (8.5-10.5); Carbon Dioxide 27 mmol/L (22-29); Chloride 103 mmol/L (98-107); Creatinine Clr Calc Pharmacy 132.7857; Globulin 2.2 g/dL (1.3-4.6); Glomerular Filtration Rate 82.6 mL/min (90-130); Glucose 138 mg/dL (65-115); Lipase 17 U/L (13-60); Osmolality Calculated 289 mOsm/kg (285-295); Potassium 4.2 mmol/L (3.5-5.1); Sodium 139 mmol/L (136-145); Total Bilirubin 0.2 mg/dL (0.15-1.2); Total Protein 6.3 g/dL (6.6-8.7)
[2024-06-28 17:29] LABS: Bilirubin Urine Negative (Negative); Blood Urine Negative (Negative); Glucose Urine UA Negative (Normal); Ketones Urine Negative (Negative); Leukocyte Esterase Urine 2+ (Negative); Nitrate Urine Negative (Negative); Protein Urine Negative (Negative); Specific Gravity, Urine 1.018 (1.005-1.030); Urine Appearance Clear (CLEAR); Urine Color Yellow (Yellow); pH Urine 7.5 (5-7)
[2024-06-28 17:31] LABS: Add Urine Microscopic? YES; Bacteria Urine Trace /hpf; Hyaline Casts Urine 0.81 /lpf; RBC Urine 0-2 /hpf (0-2); Squamous Epithelial Cell Urine 0-5 /hpf (0-5); WBC Urine 0-5 /hpf (0-5)
[2024-06-28 17:36] LABS: Add Urine Culture? No
[2024-06-28] MEDS: HYDROmorphone 1 mg/mL INJ 1 mL 0.5 MG IVP (18:45)
[2024-06-28] MEDS: ondansetron 2 mg/ML SDV 2 mL 4 MG IVP (18:45)
--- NOTE | 2024-06-28 18:56 | ED_ITS ---
HPI - Abdominal Pain 2 General: Chief Complaint: Abdominal Pain Stated Complaint: Pain right side radiates to Left side, pressure Time Seen by Provider: 06/28/24 14:50 History of Present Illness: This patient is a 33-year-old white female who presents to the emergency department complaining of right upper quadrant abdominal pain. She has had the pain for 5 days. She states it feels like indigestion. She has had some nausea but no vomiting. She has had some mild diarrhea. No fever. She has no chronic medical problems. No past surgical history. Associated Symptoms: Reports diarrhea and nausea Related Data Home Medications Medication Instructions Recorded Confirmed triamcinolone acetonide 0.1 % 1 applic topical BID PRN 08/30/23 03/26/24 topical cream Previous Rx's Medication Instructions Recorded levonorgestrel 0.15 mg-ethinyl 1 tab PO DAILY #84 tabs 11/19/23 estradiol 0.03 mg tablet (Levora-28) buprenorphine 8 mg-naloxone 2 mg 1.5 tab sublingual .AM #45 tabs 03/26/24 sublingual tablet gabapentin 300 mg capsule 300 mg PO QID #120 caps 03/26/24 prazosin 2 mg capsule 2 mg PO .HS #30 caps 03/26/24 venlafaxine 150 mg 150 mg PO DAILY #30 caps 03/26/24 capsule,extended release 24 hr (Effexor XR) venlafaxine 75 mg capsule,extended 75 mg PO DAILY #30 caps 03/26/24 release 24 hr (Effexor XR) hydrocodone 5 mg-acetaminophen 325 1 tab PO Q4H PRN pain #20 tabs 06/28/24 mg tablet Allergies Allergy/AdvReac Type Severity Reaction Status Date / Time erenumab-aooe Allergy Severe Swelling, Verified 06/28/24 14:37 [From Aimovig Autoinjector] Hives droperidol Allergy Mild HIVES Verified 06/28/24 14:37 Review of Systems 2 General: Reports: 10 or more systems reviewed and unremarkable except in HPI and below GI: Reports: abdominal pain, nausea and diarrhea PFSH ED 2 PFSH: Medical History PCOS (polycystic ovarian syndrome) No pertinent past medical history neghx: htn,dm,thyroid,dvt/pe PCP: Dr. Peraza Psychiatric care Chronic migraine without aura, not intractable, without status migrainosus Bipolar 2 disorder Surgical History History of renal stent H/O hand surgery Family History Mother Hypertension Heart disease Hypercholesteremia Father Hypertension Hypercholesteremia Family/Other Stroke Maternal Uncle Grandmother Diabetes Maternal and Paternal Heart disease Maternal and Paternal Colon cancer Paternal--dx age 80's Denies family history of Ovarian cancer Breast cancer Uterine cancer Thyroid disease Physical Exam 2 Const: COMMON NORMALS: patient oriented x3 and no limitations GENERAL APPEARANCE: cooperative HENMT: COMMON NORMALS: normocephalic, atraumatic, Normal nasal mucous membranes and turbinates present, moist oral mucous membranes and oropharynx normal HEAD & SCALP: normal to inspection, normocephalic and atraumatic F SERGIO & SINUS: normal facial exam NOSE: Normal nasal mucous membranes and turbinates present Eye: COMMON NORMALS: Equal, round and reactive pupils present, EOMs intact bilaterally and conjunctivae normal GENERAL EYE: appearance normal, both eyes and all related structures CONJUNCTIVA: Yes conjunctivae normal PUPIL: Yes Equal, round and reactive pupils present Neck/C-Spine: COMMON NORMALS: supple and no JVD Chest: COMMONS NORMALS: normal inspection of the chest Resp: COMMON NORMALS: normal respiratory effort and clear to auscultation bilaterally AUSCULTATION: clear to auscultation bilaterally Cardio: COMMON NORMALS: no JVD, regular rate, regular rhythm, No gallops present (Cardio), No murmurs present (Cardio) and No rub (Cardio) RATE: r egular rate RHYTHM: regular rhythm GI: COMMON NORMALS: Soft to palpation AUSCULTATION: Yes normoactive bowel sounds PALPATION: Yes Soft to palpation and Yes Tenderness to palpation present (GI) Details: RUQ : COMMON NORMALS: Yes no CVA tenderness BLADDER/KIDNEY EXAM: Yes no CVA tenderness Back/Pelvis: COMMON NORMALS: no CVA tenderness and thoracic and lumbar spine normal to inspection Extremity: COMMON NORMALS: normal to inspection Neuro: COMMON NORMALS: patient oriented x3 and CN's II-XII intact bilaterally Psych: COMMON NORMALS: mental status grossly normal, Normal thought process present and cooperative THOUGHT PROCESS: Normal thought process present Skin: COMMON NORMALS: no rashes or lesions noted, turgor normal and no jaundice GENERAL SKIN EXAM: no rashes or lesions noted and turgor normal Course 2 Vital Signs: Vital signs: Vital Signs Temperature 97.9 F 06/28/24 14:37 Pulse Rate 79 06/28/24 16:46 Respiratory Rate 20 H 06/28/24 14:37 Blood Pressure 145/99 06/28/24 15:46 Pulse Oximetry 98 06/28/24 16:46 MDM - Abdominal Pain Medical Decision Making CBC, CMP and lipase were normal. test negative. Urinalysis normal. Right upper quadrant ultrasound reveals a thickened gallbladder wall and multiple stones. Patient was given Toradol for her pain initially. Patient initially declined narcotic pain medication because she was addicted to narcotics for previously. She then needed some stronger pain medication later in the ER states we did give her 0.5 mg of Dilaudid IV. She is feeling better. I discussed this case with Dr. Pratt, general surgeon. He recommended she contact his office tomorrow to schedule an appointment. She was discharged in stable condition with prescription for hydrocodone. Lab Data 06/28/24 16:35 06/28/24 16:35 Labs/Radiology: Radiology Impressions Gallbladder Ultrasound 06/28/24 15:40 IMPRESSION: 1. Findings concerning for acute cholecystitis, as described above. If clinically indicated, HIDA scan may be useful for confirmation. 2. Mildly enlarged, fatty liver. Laboratory Results WBC 7.19 10^3/uL (3.29-11.43) 06/28/24 16:35 RBC 4.74 10^6/uL (3.85-5.65) 06/28/24 16:35 Hgb 12.50 g/dL (11.27-16.99) 06/28/24 16:35 Hct 39.3 % (36-47) 06/28/24 16:35 MCV 82.9 fl (85-98) L 06/28/24 16:35 MCH 26.4 pg (27-33) L 06/28/24 16:35 MCHC 31.8 g/dL (30-55) 06/28/24 16:35 RDW 13.5 % (12.1-15.1) 06/28/24 16:35 Plt Count 228 10^3/cmm (157-399) 06/28/24 16:35 MPV 8.9 fL (7.4-10.4) 06/28/24 16:35 Neut % (Auto) 52.0 % 06/28/24 16:35 Lymph % (Auto) 39.1 % 06/28/24 16:35 [place] % (Auto) 6.0 % 06/28/24 16:35 Eos % (Auto) 1.9 % 06/28/24 16:35 Baso % (Auto) 0.7 % 06/28/24 16:35 Neut # (Auto) 3.74 10^3/uL (1.8-7.7) 06/28/24 16:35 Lymph # (Auto) 2.8 10^3/uL (0.8-4.8) 06/28/24 16:35 [place] # (Auto) 0.4 10^3/uL (0.2-0.9) 06/28/24 16:35 Eos # (Auto) 0.1 10^3/uL (0.0-0.8) 06/28/24 16:35 Baso # (Auto) 0.1 10^3/uL (0.0-0.1) 06/28/24 16:35 Nucleated RBC % (auto) 0 % 06/28/24 16:35 Nucleated RBCs # 0.0 /100WBC 06/28/24 16:35 Sodium 139 mmol/L (136-145) 06/28/24 16:35 Potassium 4.2 mmol/L (3.5-5.1) 06/28/24 16:35 Chloride 103 mmol/L (98-107) 06/28/24 16:35 Carbon Dioxide 27 mmol/L (22-29) 06/28/24 16:35 Anion Gap 13.2 (5-19) 06/28/24 16:35 BUN 8 mg/dL (6-20) 06/28/24 16:35 Creatinine 0.8 mg/dL (0.5-0.9) 06/28/24 16:35 GFR Calculation 82.6 mL/min (90-130) L 06/28/24 16:35 Glucose 138 mg/dL (65-115) H 06/28/24 16:35 Calculated Osmolality 289 mOsm/kg (285-295) 06/28/24 16:35 Calcium 8.6 mg/dL (8.5-10.5) 06/28/24 16:35 Total Bilirubin 0.2 mg/dL (0.15-1.2) 06/28/24 16:35 AST 12 U/L (0-32) 06/28/24 16:35 ALT 14 U/L (0-33) 06/28/24 16:35 Alkaline Phosphatase 99 U/L (35-105) 06/28/24 16:35 Total Protein 6.3 g/dL (6.6-8.7) L 06/28/24 16:35 Albumin 4.1 g/dL (3.5-5.2) 06/28/24 16:35 Globulin 2.2 g/dL (1.3-4.6) 06/28/24 16:35 Lipase 17 U/L (13-60) 06/28/24 16:35 HCG, Qual Negative (Negative) 06/28/24 16:35 Urine Color Yellow (Yellow) 06/28/24 17:13 Urine Appearance Clear (CLEAR) 06/28/24 17:13 Urine pH 7.5 (5-7) 06/28/24 17:13 Ur Specific [place] 1.018 (1.005-1.030) 06/28/24 17:13 Urine Protein Negative (Negative) 06/28/24 17:13 Urine Glucose (UA) Negative (Normal) 06/28/24 17:13 Urine Ketones Negative (Negative) 06/28/24 17:13 Urine Blood Negative (Negative) 06/28/24 17:13 Urine Nitrate Negative (Negative) 06/28/24 17:13 Urine Bilirubin Negative (Negative) 06/28/24 17:13 Urine Urobilinogen 1.0 mg/dL (Negative) 06/28/24 17:13 Ur Leukocyte Esterase 2+ (Negative) A 06/28/24 17:13 Urine RBC 0-2 /hpf (0-2) 06/28/24 17:13 Urine WBC 0-5 /hpf (0-5) 06/28/24 17:13 Ur Squamous Epith Cells 0-5 /hpf (0-5) 06/28/24 17:13 Amorphous Sediment Not Reportable 06/28/24 17:13 Urine Bacteria Trace /hpf (NONE) 06/28/24 17:13 Hyaline Casts 0.81 /lpf 06/28/24 17:13 All radiology interpretation(s) finalized by discharge Discharge Plan Discharge Patient Disposition: Home Clinical Impression: Cholelithiasis Qualifiers: Cholelithiasis location: gallbladder Cholecystitis presence: with cholecystitis Cholecystitis acuity: acute Biliary obstruction: without biliary obstruction Q ualified Code(s): K80.00 - Calculus of gallbladder with acute cholecystitis without obstruction Condition: Stable Prescriptions: New hydrocodone-acetaminophen 5-325 mg tablet 1 tab PO Q4H PRN (Reason: pain) Qty: 20 0RF No Action triamcinolone acetonide 0.1 % cream 1 applic topical BID PRN buprenorphine-naloxone 8-2 mg tablet, sublingual 1.5 tab sublingual .AM Qty: 45 2RF gabapentin 300 mg capsule 300 mg PO QID Qty: 120 2RF prazosin 2 mg capsule 2 mg PO .HS Qty: 30 2RF venlafaxine [Effexor XR] 150 mg capsule,extended release 24hr 150 mg PO DAILY Qty: 30 2RF venlafaxine [Effexor XR] 75 mg capsule,extended release 24hr 75 mg PO DAILY Qty: 30 2RF levonorgestrel-ethinyl estrad [Levora-28] 0.15-0.03 mg tablet 1 tab PO DAILY Qty: 84 3RF Discharge Orders: Discharge ED (Routine); Ordered 06/28/24 Ordered By: Cole Mejia Referrals: Martin Pratt MD [Physician] - Jacqui Peraza DO [Primary Care Provider] - Patient Instructions: Gallstones (ED), Pain Management Activity Restrictions/Additional Instructions: Call Dr. Pratt's office tomorrow to schedule an appointment. Coding Level of Care Code ED Vehicle Service Agent for Holland Rawls
== END 2024-06-28 19:07 | disposition home or self-care (01) ==
PROVIDERS: Emergency Provider Emergency Medicine; PCP Family Medicine
DX: K80.00 Calculus of gallbladder with acute cholecystitis without obstruction (principal)
CPT/HCPCS: 36415; 76705; 80053; 81001; 83690; 84703; 85025; 93005; 96374; 96375; 99285; J1171; J1885; J2405; J7030

== ENCOUNTER 2024-07-01 12:10 | Day surgery (SDC) | payer OTHER, SELFPAY ==
[2020-11-15 09:11] VITALS: BP 141/92; BMI 41.9
[2024-07-01] VITALS (10 sets, daily range): BP systolic 112–154; BP diastolic 60–80; PULSE 68–82; RESP 12–20; TEMP 36.1; O2SAT 93–100; BMI 46.5
[2024-07-01] MEDS: sodium chloride 0.9% 1,000 ML 30 ML IV (13:00)
[2024-07-01] MEDS: scopolamine 1.5 Patch 1 PATCH TRANSDERMA (13:06)
[2024-07-01 13:19] LABS: OR HCG Qualitative Urine Negative (Negative)
--- NOTE | 2024-07-01 13:43 | ANES.PREANE2 ---
Pre-Anesthetic Assessment Height/Weight: Height 5 ft 5 in Weight 280 lb BP O2 Del Method 154/80 Room Air 07/01/24 13:06 07/01/24 12:28 Preop Diagnosis: Cholelithiasis Operation Date: 07/01/24 13:40 Proposed Procedures p Laparoscopic Cholecystectomy- 00436, K80.00(Not Applicable) - Martin Pratt MD Was Beta Ana taken within 24 hours: N/A Was Clonidine taken within 24 hours: N/A Last intake: Intake Last Liquid Date 06/30/24 Last Liquid Time 23:30 Last Solid Date 06/30/24 Last Solid Time 18:30 Social Tobacco and No alcohol Exam alert, oriented x 3, clear to auscultation bilaterally and regular rate & rhythm Airway Submandibular: within normal limits Cervical ROM: within normal limits Mallampati: Class II Dentition: false Anesthetic Plan ASA status: 3 Anesthesia: General Other: No prior issues with anesthesia NPO since yesterday History of narcotic abuse on chronic Suboxone. Most recently taken 06/30/2024 History of GERD, diet controlled BMI 46 Denies hypertension, preop BP 154/80 Labs reviewed and acceptable for procedure EKG showing sinus rhythm Plan for GETA Medications/Allergies Home Medications Medication Instructions Recorded Confirmed Last Taken Type levonorgestrel 0.15 mg-ethinyl 1 tab PO DAILY #84 tabs 11/19/23 07/01/24 07/01/24 Rx estradiol 0.03 mg tablet (Levora-28) hydrocodone 5 mg-acetaminophen 325 1 tab PO Q4H PRN pain #20 tabs 06/28/24 07/01/24 Unknown Rx mg tablet buprenorphine 8 mg-naloxone 2 mg 0.5 tab sublingual TID 06/30/24 07/01/24 06/30/24 History sublingual tablet gabapentin 300 mg capsule 300 mg PO QID #120 caps 06/30/24 07/01/24 07/01/24 Rx prazosin 2 mg capsule 2 mg PO .HS #30 caps 06/30/24 07/01/24 2 Weeks Ago Rx ~06/17/24 venlafaxine 150 mg 150 mg PO DAILY #30 caps 06/30/24 07/01/24 07/01/24 Rx capsule,extended release 24 hr (Effexor XR) venlafaxine 75 mg capsule,extended 75 mg PO DAILY #30 caps 06/30/24 07/01/24 07/01/24 Rx release 24 hr (Effexor XR) Allergies Allergy/AdvReac Type Severity Reaction Status Date / Time erenumab-aooe Allergy Severe Swelling, Verified 07/01/24 12:46 [From Aimovig Autoinjector] Hives droperidol Allergy Mild HIVES Verified 07/01/24 12:46 Current Medications Generic Name Dose Route Start Last Admin Trade Name Hellen PRN Reason Stop Dose Admin Sodium Chloride 1,000 mls @ 30 mls/hr 07/01/24 13:00 07/01/24 13:00 Sodium Chloride 0.9% IV 07/02/24 12:59 30 mls/hr .Q24H CARMEN Administration PFSH Anesthesia Medical History PCOS (polycystic ovarian syndrome) No pertinent past medical history neghx: htn,dm,thyroid,dvt/pe PCP: Dr. Peraza Psychiatric care Chronic migraine without aura, not intractable, without status migrainosus Bipolar 2 disorder Surgical History History of renal stent H/O hand surgery Family History Mother Hypertension Heart disease Hypercholesteremia Father Hypertension Hypercholesteremia Family/Other Stroke Maternal Uncle Grandmother Diabetes Maternal and Paternal Heart disease Maternal and Paternal Colon cancer Paternal--dx age 80's Denies family history of Ovarian cancer Breast cancer Uterine cancer Thyroid disease Social History Smoking and tobacco/nicotine status: current every day tobacco/nicotine user Female Reproductive History Date of last menstrual period: 06/16/24 Data Anesthesia Cardiac Studies: No Data to Display
--- NOTE | 2024-07-01 14:25 | W.PM.OPSUD ---
Surgery/Procedure H&P Update DATE OF PROCEDURE: July 01, 2024 DATE H&P PERFORMED: 06/30/24 H&P UPDATE INFORMATION: I have reviewed H&P completed within last 30 days, I have examined patient prior to procedure and No changes to prior documentation PREOP DIAGNOSIS: Cholelithiasis PLANNED PROCEDURE: Operation Date: 07/01/24 13:40 Proposed Procedures p Laparoscopic Cholecystectomy- 91993, K80.00(Not Applicable) - Martin Pratt MD
[2024-07-01] MEDS: ceFAZolin 2,000 mg SDV 2000 MG IVP (14:30)
[2024-07-01] MEDS: ceFAZolin 1,000 mg SDV 1000 MG IVP (14:54)
[2024-07-01] MEDS: BUPivacaine 0.25% INJ 10 mL INJECTION (14:56)
[2024-07-01] MEDS: lidocaine-epi 1% 20 mL INJ 10 ML INJECTION (14:56)
--- NOTE | 2024-07-01 15:58 | P.OP_ITS ---
Operative Report Date of procedure: July 01, 2024 Pre-op diagnosis: Subacute cholecystitis Post-op diagnosis: same Post-op findings: Inflammed gallbladder. Cholelithiasis. Procedure done: Laparoscopic cholecystectomy Implants: NA Specimens removed/disposition: Gallbladder with stones sent to pathology Pathology: Gallbladder with stones Surgeon: Martin Pratt MD Surface Supply Breathing Apparatus: ZULY Anesthesia: General Estimated blood loss (mL): 10 Complications: NA Findings: Cholecystitis, cholelithiasis Condition: stable Disposition: same day Brief History: Female who presented with subacute cholecystitis. Discussed risk and benefits of laparoscopic cholecystectomy possible open and patient agreed to proceed. Procedure: I discussed the risks and benefits of laparoscopic cholecystectomy, and obtained consent prior to proceeding to the operating room. SCDs were utilized. Prophylactic antibiotics were administered. General anesthesia was induced. The patient was placed supine, and she was prepped and draped in the usual sterile f ashion. Insufflation to 15mmHg was achieved using a Veress needle at Anna's point. A 12mm optiview trocar was placed at the umbilicus under direct visualization. The left upper quadrant was inspected, and no injuries were noted. Two 5mm ports were placed in the right upper quadrant, and a 12mm working port was placed in the epigastrium. The gallbladder was then retracted cephalad through the lateral RUQ port, and the infundibulum grabbed through the medial RUQ port and retracted laterally. The gallbladder was inflammed and filled with stones, thus consistent with her diagnosis of cholecystitis. I proceeded to score the peritoneum over the medial aspect of the gallbladder using a laparoscopic hook with electrocautery. Then the infundibulum was retracted medially in order to score the peritoneum over the lateral aspect of the galbladder. Using a combination of energy and blunt dissection with the [place] and a [place] dissector, the cystic artery and cystic duct were dissected. I then proceeded to dissect the cystic plate in order to to achieve the critical view of safety. The cystic artery and the cystic duct were clipped three times (leaving two clips on the proximal end of both structures). I then proceeded to dissect the gallbladder off the liver using hook electrocautery. The specimen was placed in an endocatch bag and retrieved from the abdomen through the port on the epigastrium. I then irrigated the gallbladder fossa with 1L of NS to confirm adequate hemostasis and the absence of any bile leaks. The gallbladder fossa was then cauterized again. Prior to ending the laparoscopic portion, I examined the rest of the abdomen and did not find any abnormalities or injuries. The abdomen was then desufflated, and the 12mm port in the epigastrium was closed using 0 vicryl using the Ezekiel-Nisreen after irrigating copiously. Skin was closed using 4-0 monocryl and surgical glue. The patient woke up from anesthesia and transferred to PACU without any complications.
--- NOTE | 2024-07-02 13:22 | ANE.PACU2 ---
Inpatient post-anesthesia follow up: Airway intact: Yes Vital signs: Temperature 97.0 F Pulse Rate 68 Respiratory Rate 20 Blood Pressure 112/64 Pulse Oximetry 95 Oxygen Delivery Me thod Room Air Oxygen Flow Rate 8 Fraction of Inspir ed Oxygen Hydration adequate: Yes Nausea and vomiting: No Pain level: 1 Mental status: Baseline
== END 2024-07-01 17:31 | disposition home or self-care (01) ==
PROVIDERS: Student in an Organized Health Care Education/Training Program; Visit Provider Student in an Organized Health Care Education/Training Program
PROC: 0FT44ZZ Resection of Gallbladder, Percutaneous Endoscopic Approach (ICD-10-PCS; CPT 47562; principal; 2024-07-01 13:30)
DX: K80.10 Calculus of gallbladder with chronic cholecystitis without obstruction (principal); K21.9 Gastro-esophageal reflux disease without esophagitis; F17.200 Nicotine dependence, unspecified, uncomplicated; E28.2 Polycystic ovarian syndrome
CPT/HCPCS: 47562; 81025; 88304; J0690; J1100; J1171; J1885; J2250; J2405; J2704; J2710; J3010; J3490; J7030

== ENCOUNTER → 2024-09-04 13:59 | Outpatient (BNVA) | payer OTHER, SELFPAY ==
[2020-11-15 09:11] VITALS: BP 141/92; BMI 41.9
== END ==
PROVIDERS: Visit Provider Psychiatry & Neurology Psychiatry
DX: Z79.899 Other long term (current) drug therapy; F11.21 Opioid dependence, in remission
CPT/HCPCS: 80307

== ENCOUNTER → 2024-09-17 16:31 | Outpatient (BNVA) | payer OTHER, SELFPAY ==
[2020-11-15 09:11] VITALS: BP 141/92; BMI 41.9
== END ==
PROVIDERS: Visit Provider Nurse Practitioner Women's Health
DX: Z01.419 Encounter for gynecological examination (general) (routine) without abnormal findings (principal); N93.9 Abnormal uterine and vaginal bleeding, unspecified; E28.2 Polycystic ovarian syndrome
CPT/HCPCS: 87624

== ENCOUNTER → 2024-12-04 13:48 | Outpatient (BNVA) | payer OTHER, SELFPAY ==
[2020-11-15 09:11] VITALS: BP 141/92; BMI 41.9
== END ==
PROVIDERS: Visit Provider Psychiatry & Neurology Psychiatry
DX: F11.21 Opioid dependence, in remission (principal); Z79.899 Other long term (current) drug therapy
CPT/HCPCS: 80307

== ENCOUNTER → 2025-03-01 14:27 | Outpatient (BNVA) | payer OTHER, SELFPAY ==
[2020-11-15 09:11] VITALS: BP 141/92; BMI 41.9
== END ==
PROVIDERS: Visit Provider Psychiatry & Neurology Psychiatry
DX: F41.1 Generalized anxiety disorder (principal); F32.9 Major depressive disorder, single episode, unspecified; F11.21 Opioid dependence, in remission; Z79.899 Other long term (current) drug therapy; F17.290 Nicotine dependence, other tobacco product, uncomplicated
CPT/HCPCS: 80307

== ENCOUNTER → 2025-04-26 14:00 | Outpatient (BNVA) | payer OTHER, SELFPAY ==
[2020-11-15 09:11] VITALS: BP 141/92; BMI 41.9
== END ==
PROVIDERS: PCP Family Medicine; Visit Provider Family Medicine
DX: D50.9 Iron deficiency anemia, unspecified (principal); R00.2 Palpitations; R73.9 Hyperglycemia, unspecified
CPT/HCPCS: 80053; 82728; 83036; 83550; 83735; 84443; 85025

== ENCOUNTER → 2025-07-21 14:52 | Outpatient (BNVA) | payer OTHER, SELFPAY ==
[2020-11-15 09:11] VITALS: BP 141/92; BMI 41.9
== END ==
PROVIDERS: PCP Family Medicine; Visit Provider Psychiatry & Neurology Psychiatry
DX: F11.21 Opioid dependence, in remission (principal); Z79.899 Other long term (current) drug therapy
CPT/HCPCS: 80307